=== PATIENT | male | born 1940 | race Caucasian/White ===

== ENCOUNTER 2021-10-04 19:53 | Emergency (ER) | payer MEDICARE, BC, SELFPAY ==
[2021-10-04 20:13] VITALS: BP 195/100; PULSE 77; RESP 16; TEMP 36.5; O2SAT 91
--- NOTE | 2021-10-04 20:23 | ED_ITS ---
HPI - Altered Mental Status General Chief Complaint: Unspecified Complaint, Adult Stated Complaint: Dementia, unusual behavior Time Seen by Provider: 10/04/21 19:57 Source: family History of Present Illness HPI narrative: patient presents today accompanied by his and son. Very hesitant to be examined today. Family reports that he has not been acting quite like himself over the past 3 days. He has had increased urinary incontinence and has been more confused wobbly than normal. He has a known history of moderate dementia and has been on Namenda and Aricept in the past. reports that they have stopped both of those medicines, the Aricept just being in the last few weeks as they were not noticing benefit from it. She is concerned that he could have a bladder infection as once this caused a worsening of his symptoms. He has had a bit of a busy day, family came to visit a look through some and visited for longer than usual period of time. When patient went to lie down and woke up from a nap, he was a bit disoriented and was yelling out but not showing any abuse of her combative type behaviors per family report. He wanted to go to the softball games this evening which is typical for him. The family did take him to the ball field and unfortunately the games ended quickly due to weather. Patient was irritable trying to get back in the car, they talked about going out for ice cream and he seemed more confused. They brought him to the ED today to evaluate this mental status change. No Fevers, there has been no vomiting no diarrhea. He has had no changes in his medicines in the last few days. no recent trauma or injury. No stroke-like symptoms, difficulty speaking, focal neurological changes. It took several staff members about 10 minutes to coax him into the furthest exam room. He keeps stating that he would like to go home and he does not need to be here. He seems restless but deescalate very quickly in my presence. It is quite clear that the dementia is a well-known problem, he has been on multiple medications, has see Neurology. His reports that they have additional home health starting for physical therapy, occupational therapy. They have not had any recent visit with their primary care provider. They have not tried any other interventions at home to help with symptoms. The son states that he will have the or confused spells in the overnight hours sometimes but it is not typical for him in the evenings. they deny any alcohol or intoxication. They state that is been eating and drinking normally. On specific questioning, I asked family about their ultimate goals for today. Am questioning whether they are telling me that they cannot manage him at home any need to admit him to the hospital for his own safety and to put him in a snf. I ask if they are wanting me to do a basic medical investigation to rule out any secondary causes for delirium today in the setting of underlying dementia. Son and both agreed that they can continue to meet His needs if I do find a benign workup today. I reviewed the medication list provided by his family most notable for vitamin supplements, antihypertensives. No narcotics or cognitive impairing substances. Recently discontinued dementia medications. Past medical history most notable for hypertension, obesity, osteoarthritis of multiple sites and moderate dementia. Social history supportive family with no alcohol abuse. No substance use. ROS is negative times 15 systems from the patient but the family noting increased confusion, more unsteadiness on feet and urinary incontinence which is new. They otherwise deny times 15 systems today. Related Data Home Medications Medication Instructions Recorded Confirmed citalopram 20 mg tablet mg 10/04/21 hydrochlorothiazide 12.5 mg tablet mg 10/04/21 levothyroxine 100 mcg tablet mcg 10/04/21 losartan 50 mg tablet mg 10/04/21 metoprolol succinate 100 mg mg PO 10/04/21 tablet,extended release 24 hr pravastatin 20 mg tablet mg 10/04/21 Allergies Allergy/AdvReac Type Severity Reaction Status Date / Time No Known Drug Allergies Allergy Verified 10/04/21 20:27 [facility] Medical History (Updated 10/04/21 @ 20:39 by Stacy Viveros MD) Hypertension Moderate dementia Social History Smoking Status: Unknown if ever smoked How often do you have a drink containing alcohol: never How often do you have six or more drinks on one occasion: Never AUDIT-C Alcohol total score: 0 Exam Const: Vital Signs, click to edit/add: Vital Signs - 24 hr 10/04/21 20:13 Temperature 97.7 F Pulse Rate [Left P ulse Oximeter] 77 Respiratory Rate 16 Blood Pressure [Ri ght Upper Arm] 195/100 H Pulse Oximetry 91 Oxygen Delivery Me thod Room Air Documenting provider has reviewed patient's vital signs: yes Common normals: no apparent distress General appearance: well kempt HENMT: Common normals: normocephalic Head and scalp: normocephalic Mouth: oral and palatal mucosa normal and moist mucous membranes abnormal Throat: posterior oropharynx normal Other: Moist membranes with normal dentition Eye: Common normals: PERRL, conjunctivae normal and no scleral icterus Conjunctiva: conjunctiva(e) normal Pupil: PERRL Neck & C-Spine: Other: nontender with no lymphadenopathy Resp: Common normals: normal respiratory effort, no use of accessory muscles and clear to auscultation bilaterally Auscultation: clear to auscultation bilaterally Cardio: Common normals: regular rate and regular rhythm Rate: regular rate Rhythm: regular rhythm Other: 2/6 systolic ejection murmur. No S4 GI: Other: obese but soft. No tenderness. No obvious mass Extremity: Other: trace edema to lower tibia, equal bilaterally Neuro: Other: Wobbly wide gait. redirectable by family. Calm and cooperative during the time of my exam. Very poor insight, thought process illogical at times. mildly irritable but not combative. In the very appropriate in their goals and helpful at counseling patient. Psych: Appearance: well kempt Attitude: guarded Memory/cognition: memory grossly impaired Insight: poor Judgement: limited Skin: Common normals: no rashes or lesions noted Narrative: No signs of bruising, trauma, injury. General skin exam: no rashes or lesions noted Course Vital Signs Vital signs: Initial Vital Signs Temperature 97.7 F 10/04/21 20:13 Temperature Source Temporal Artery Scan 10/04/21 20:13 Pulse Rate 77 10/04/21 20:13 Respiratory Rate 16 10/04/21 20:13 Blood Pressure 195/100 H 10/04/21 20:13 Blood Pressure Mean 131 10/04/21 20:13 Blood Pressure Position Sitting 10/04/21 20:13 Pulse Oximetry 91 10/04/21 20:13 Oxygen Delivery Method 10/04/21 20:13 Vital Signs Temperature 97.7 F 10/04/21 20:13 Pulse Rate 77 10/04/21 20:13 Respiratory Rate 16 10/04/21 20:13 Blood Pressure 195/100 H 10/04/21 20:13 Pulse Oximetry 91 10/04/21 20:13 Oxygen Delivery Method 10/04/21 20:13 Temperature 97.7 F 10/04/21 20:13 Pulse Rate 77 10/04/21 20:13 Respiratory Rate 16 10/04/21 20:13 Blood Pressure 195/100 H 10/04/21 20:13 Pulse Oximetry 91 10/04/21 20:13 Oxygen Delivery Method 10/04/21 20:13 MDM - Altered Mental Status MDM Narrative Medical decision making narrative: Goals reviewed with family. We will search for reversible cause of acute delirium in the setting of underlying dementia. I do suspect that he is exhibiting sundowning and that this behavior is going to continue. They claim that that they can meet his needs at the current time. he is going to need more extensive Memory Care at home or in a facility within the next few months. Differential Diagnosis Differential diagnosis: Likely alcoholic intoxication, altered mental status, delirium, dementia, hypoglycemia, hyponatremia and sepsis Medical Records Attestation: I reviewed the patient's medical records. Lab Data Attestation: I reviewed the patient's lab results. Lab results narrative: Lab findings have been discussed with family. I do not detect any signs of a bladder infection. At this time, the family does feel safe taking him home and they report that his condition has calmed down considerably while he has been in the emergency department. They do feel safe taking him home. We did briefly discuss assisted living, memory care. They are on appropriate waiting list for these types of services. Labs: Lab Results 10/04/21 10/04/21 10/04/21 Range/Units 20:40 20:49 20:49 WBC 11.24 H (4.50-11.00) K/uL RBC 4.80 (4.30-5.90) m/uL Hgb 15.1 (13.5-17.5) gm/dL Hct 45.0 (37.0-53.0) % MCV 94 (80-100) fL MCH 32 (26-34) pg MCHC 34 (32-36) gm/dL RDW Coeff of Zena 12.3 (11.5-15.5) % Plt Count 250 (140-440) K/uL Neut % (Auto) 69.0 (42.0-72.0) % Lymph % (Auto) 17.4 L (20-44) % Esmeralda % (Auto) 7.5 (0.0-11.0) % Eos % (Auto) 5.2 (0.0-7.0) % Baso % (Auto) 0.6 (0.0-3.0) % Neut # (Auto) 7.80 H (1.7-7.0) K/uL Lymph # (Auto) 2.00 (0.90-2.90) K/uL Esmeralda # (Auto) 0.80 (0.00-0.90) K/UL Eos # (Auto) 0.60 H (0.00-0.50) K/uL Baso # (Auto) 0.10 (0.00-0.30) K/uL Abs Immat Gran (auto) 0.03 (0.00-0.30) K/uL Sodium 141 (135-149) mmol/L Potassium 3.5 L (3.6-5.1) mmol/L Chloride 106 (96-114) mmol/L Carbon Dioxide 22 (20-32) mmol/L BUN 23 (7-30) mg/dL Creatinine 1.0 (0.5-1.5) mg/dL Estimated GFR 77 ml/min Glucose 146 H (60-115) mg/dL Calcium 9.4 (8.4-10.6) mg/dL Urine Color Yellow (Yellow) Urine Appearance Clear (Clear) Urine pH 5.5 (5.0-8.5) Ur Specific [place] 1.020 (1.000-1.030) Urine Protein 1+ A (Negative) Urine Glucose (UA) Trace A (Negative) Urine Ketones Trace A (Negative) Urine Blood Negative (Negative) Urine Nitrite Negative (Negative) Urine Bilirubin Negative (Negative) Urine Urobilinogen 0.2 (0.2-1.0) Ur Leukocyte Esterase Negative (Negative) Urine RBC 0-2 (0-2) Urine WBC 0-2 (0-5) Ur Squamous Epith Cells Few (None-Few) Urine Bacteria None (None) Urine Mucus Few A (None) Ethyl Alcohol (0.01-0.03) % 10/04/21 Range/Units 20:49 WBC (4.50-11.00) K/uL RBC (4.30-5.90) m/uL Hgb (13.5-17.5) gm/dL Hct (37.0-53.0) % MCV (80-100) fL MCH (26-34) pg MCHC (32-36) gm/dL RDW Coeff of Zena (11.5-15.5) % Plt Count (140-440) K/uL Neut % (Auto) (42.0-72.0) % Lymph % (Auto) (20-44) % Esmeralda % (Auto) (0.0-11.0) % Eos % (Auto) (0.0-7.0) % Baso % (Auto) (0.0-3.0) % Neut # (Auto) (1.7-7.0) K/uL Lymph # (Auto) (0.90-2.90) K/uL Esmeralda # (Auto) (0.00-0.90) K/UL Eos # (Auto) (0.00-0.50) K/uL Baso # (Auto) (0.00-0.30) K/uL Abs Immat Gran (auto) (0.00-0.30) K/uL Sodium (135-149) mmol/L Potassium (3.6-5.1) mmol/L Chloride (96-114) mmol/L Carbon Dioxide (20-32) mmol/L BUN (7-30) mg/dL Creatinine (0.5-1.5) mg/dL Estimated GFR ml/min Glucose (60-115) mg/dL Calcium (8.4-10.6) mg/dL Urine Color (Yellow) Urine Appearance (Clear) Urine pH (5.0-8.5) Ur Specific [place] (1.000-1.030) Urine Protein (Negative) Urine Glucose (UA) (Negative) Urine Ketones (Negative) Urine Blood (Negative) Urine Nitrite (Negative) Urine Bilirubin (Negative) Urine Urobilinogen (0.2-1.0) Ur Leukocyte Esterase (Negative) Urine RBC (0-2) Urine WBC (0-5) Ur Squamous Epith Cells (None-Few) Urine Bacteria (None) Urine Mucus (None) Ethyl Alcohol < 0.01 L (0.01-0.03) % Discharge Plan Discharge Clinical Impression: Moderate dementia Patient Disposition: Home w/ Parent or Adult Condition: Stable Instructions: Dementia (ED) Additional Instructions: The blood work is reassuring. There are no signs of a bladder infection, kidney disease, electrolyte abnormality or anemia today. This is all good news. My suspicion is that unfortunately his dementia is progressing and this is not always in a linear fashion. Sometimes it takes major stair steps in progression and can wax and wane overall. I think that today's behavior changes were brought on by the family visit. your doing an excellent job at looking at all of your options For looking at living arrangements and safety. I do not recommend any further changes to her medications at this time. I would like for you to follow-up with your primary care team within 1 week to discuss the mental status changes and potential need for additional home services. We will culture the urine to be sure there is no infection and will call only if this is suspicious for infection. I am sorry that we were not able to find and easily fixable source for these changes today. Activity Level: Activity as Tolerated and Use Walker Discharge Diet: Regular Prescriptions: No Action losartan 50 mg tablet metoprolol succinate 100 mg tablet extended release 24 hr PO levothyroxine 100 mcg tablet citalopram 20 mg tablet pravastatin 20 mg tablet hydrochlorothiazide 12.5 mg tablet Follow Up/Referrals: Gregg Carty MD [Primary Care Provider] - Stand Alone Forms: [employer] Info Instructions
--- NOTE | 2021-10-04 20:42 | ED.NURSE ---
Pt ambulatory to the restroom with assistance. Pt provided UA.
[2021-10-04 20:45] LABS: Appearance Urine Clear (Clear); Bilirubin Urine Negative (Negative); Blood Urine Negative (Negative); Color Urine Yellow (Yellow); Glucose Urine Trace (Negative); Ketones Urine Trace (Negative); Leukocyte Esterase Urine Negative (Negative); Nitrite Urine Negative (Negative); Protein Urine 1+ (Negative); Urobilinogen Urine 0.2 (0.2-1.0); pH Urine 5.5 (5.0-8.5)
[2021-10-04 20:53] LABS: RBC Urine 0-2 (0-2); Squamous Epithelial Cell Urine Few (None-Few); WBC Urine 0-2 (0-5)
[2021-10-04 20:54] LABS: Mucus Urine Few
[2021-10-04 20:55] LABS: Basophils Percent Auto 0.6 % (0.0-3.0); Eosinophils Percent Auto 5.2 % (0.0-7.0); Hemoglobin* 15.1 gm/dL (13.5-17.5); Immature Granulocytes Abs Auto 0.03 K/uL (0.00-0.30); Lymphocytes Percent Auto 17.4 % (20-44); Mean Corpuscular HGB Conc 34 gm/dL (32-36); Mean Corpuscular Hemoglobin 32 pg (26-34); Mean Corpuscular Volume 94 fL (80-100); Monocytes Percent Auto 7.5 % (0.0-11.0); Platelet Count* 250 K/uL (140-440); RDW Coefficient of Variation % 12.3 % (11.5-15.5); White Blood Count* 11.24 K/uL (4.50-11.00)
[2021-10-04 20:58] LABS: Slide Review Reflex No
--- NOTE | 2021-10-04 21:00 | ED.NURSE ---
Pt does not tolerate BP readings with automatic cuff because they are too painful for him. Manual BPs attempted, pt unable to tolerate completion of reading. Pt pulling away and demanding BP cuff be taken off during reading. MD aware of BP reading issues, okay with discontinuing further BP reading attempts.
[2021-10-04 21:09] LABS: Chloride* 106 mmol/L (96-114); Potassium* 3.5 mmol/L (3.6-5.1); Sodium* 141 mmol/L (135-149)
[2021-10-04 21:12] LABS: Blood Urea Nitrogen* 23 mg/dL (7-30); Carbon Dioxide* 22 mmol/L (20-32); Estimated Glomerular Filt Rate 77 ml/min; Glucose* 146 mg/dL (60-115)
[2021-10-04 21:13] LABS: Calcium* 9.4 mg/dL (8.4-10.6); Ethanol* < 0.01 % (0.01-0.03)
== END 2021-10-04 21:42 | disposition home or self-care (01) ==
PROVIDERS: Emergency Provider Family Medicine; PCP Family Medicine
DX: F03.90 Unspecified dementia, unspecified severity, without behavioral disturbance, psychotic disturbance, mood disturbance, and anxiety (principal)
CPT/HCPCS: 36415; 80048; 81001; 82077; 85025; 87086; 99283

== ENCOUNTER 2021-10-11 19:38 | Outpatient (CLI) | payer MEDICARE, BC, SELFPAY ==
--- OUTSIDE RECORDS SUMMARY | 2021-11-06 11:47 | XMS_ITS | Clinical Summary ---
:1940 Author Organization [facility] Address [address] [place] [address] Care Team Providers Name Role Phone No Ref-Primary, Physician Primary Care Provider [phone] Immunizations Name Administration Dates Next Due [...] Phone Addre ss Type Group BCBS BCBS [place] [id number] 2017-Present [address] [address] [place] [address] Care Teams Heading Machine Operator Relationship Specialty Start Date End Date No Ref-Primary, Physician PCP - General 03/16/20
--- OUTSIDE RECORDS SUMMARY | 2021-11-06 11:47 | XMS_ITS | Clinical Summary ---
:1940 Author Organization [employer] [place] [address] Care Team Providers Name Role Phone Seamus Holley DO Unavailable Rudy Ohara MD Unavailable [phone] Allergies Active Allergy Reactions Severity Noted Date [...] Essential hypertension CPAPIndications: CPAP machine 1 Each 11 09/14/19 Active Obstructive sleep for home use [...] 06/26/19 Discontinued 100 mg capIndications: capsule by 022 (*Med Mixed hyperlipidemia mouth 2 times complete/Regime [...] Adenocarcinoma of prostate 10/15/2011 Overview: Prostatic adenocarcinoma, Crane's grad e 3 + 4 = 08/26: Pathology Report from Bx 09/17/2011 [place] 09/25/2009 AHI 24, positional 111 in supine 10/17/19 10 Overview: Doing well with CPAP Advised to bring it to [facility] for surgery Adjustment disorder with depressed mood [...] COORDINATION 10/12/2021 Home Care Visit Maureen Shin SCHOOL COOK - MISSED VISIT 10/11/2021 Home Care Visit Florencia Pinto, OT - HOME VISIT GEE 10/11/2021 Home Care Visit Tennille Robledo, PT PT - HOME VISIT 10/11/2021 Telephone Miesha Gilbert, Home Ca re (Medication PT Clarification) 10/10/2021 Home Care Visit Florencia Pinto, OT - HOME VISIT GEE 10/10/2021 Home Care Visit Harriett Rodriguez MSW - TELEHEALTH WALLPAPER INSPECTOR AND SHIPPER ASSESSMENT 10/09/2021 Home Care Visit Tennille Robledo, PT PT - HOME VISIT 10/09/2021 Home Care Visit Maureen Shin SCHOOL COOK - HOME VISIT 10/09/2021 Travel 10/08/2021 Telemedicine Gregg Carty Teleh ealth (Follow up) 10/08/2021 Home Care Visit Elisha Ferguson, OT OT - INITIAL ASSESSMENT 10/05/2021 Home Care Visit Xochilt Alvares, CARE COORDINATION PT 10/04/2021 Orders Only Scanner <No scans attac hed> 10/03/2021 Home Care Visit Miesha Gilbert, PT - OASIS START OF CARE PT 10/01/2021 Telephone Gregg Carty MD 09/27/2021 Telephone Gregg Carty Form 09/26/2021 Telephone Gregg Carty, [facility] (Handicap parking pass) 09/20/2021 Orders Only Gregg Carty, Lab ( Outside Order) 09/13/2021 Office Visit Salazar Jeffery MD Sleep Follow -up (CPAP) 09/13/2021 Travel from Last 3 Months Immunizations Name Administration [...] 0911/08/2019 65+ Years) Preserv Free COVID-19 vaccine ([employer] 08/01/2021 30mcg/0.3mL) 12YO+ BRODIE-SUCROSE PF, MDV COVID-19 vaccine ([employer] 12/14/2020, 04/09/2020, 30mcg/0.3mL) PF, MDV Influenza A (H1N1), Inactivated 2009 Influenza A (H1N1), Inactivated (Age 0102/28/2009 >=3 Years) Influenza, IIV3 (Age 6-35 mos) 12/03/2010, 01/24/2009 Influenza, IIV3 (Age >=3 years) 11/04/2011, 12/03/2010, 2010, 12/03/2006, 12/18/2005, 12/25/2004, 12/14/2002 Influenza, Inactivated AIIV4 [...] 177.8 cm (5' 10) 03/13/2021 9:37 AM JACKER FEEDER Body Mass Index 33.55 03/13/2021 9:37 AM JACKER FEEDER Plan of Treatment Not on file Goals [...] procedure are i n the results section. from Last 3 Months [...] that is no t available. Scanner OTHER from Last 3 Months Insurance Payer Benefit Plan / Subscriber ID Effective Dates Phone Addre ss Type Group MEDICARE PART MEDICARE PART [id number] [place] A - [place] USE A HB ONLY ent [address] [place] [address] MEDICARE PART MEDICARE PART [id number] 2007-[place] B - HB USE B HB ONLY t [address] [place] [address] MEDICARE PPS HC MEDICARE [id number] 2007-[place] [address] [place] [address] [address] [place] [place] [id number] 2017-Presen [address] [address] [place] [facility] [place] [id number] [place]OSS [place] [id number] 2017-[place] [address] [address] [place], [place] ONLY [phone] Advance Directives Documents on File Type Date Recorded Patient Freight Sorter Explanati on Healthcare Directive 08/11/2018 10:47 AM HEALTH C ARE DIRECTIVE, [facility], 03/10/18 Latest Code Status on File Code Status Date Activated Date Inactivated Comments Full Code 06/21/2017 12:01 PM 06/22/2017 2:44 PM Code Status Discussion: Discussed Full Code 11/04/2011 8:01 PM 11/06/2011 10:11 PM Care Teams [place] Relationship Specialty Start Date End Date Seamus Holley DO Neurology Neurology 12/23/11 Rudy Ohara MD Surgery - Urology 02/19/[address] [place] [address]
--- OUTSIDE RECORDS SUMMARY | 2021-11-06 11:47 | XMS_ITS | Encounter Summary ---
:1940 Author Organization [facility] Address [address] [place] [address] Care Team Providers Name Role Phone No Ref-Primary, Physician Primary Care Provider [phone] Encounter Details Date Type Department Care Team Description 03/19/2020 [facility] [address] [address] Social History Tobacco Use Types Packs/Day Years Used Date Never Assessed Sex Assigned at Date Recorded Not on file documented as of this encounter Plan of Treatment Not on filedocumented as of this encounter Visit Diagnoses Not on filedocumented in this encounter Care Teams Shipping Associate Relationship Specialty Start Date End Date No Ref-Primary, Physician PCP - General 03/16/20 documented as of this encounter
--- OUTSIDE RECORDS SUMMARY | 2021-11-06 11:47 | XMS_ITS | Encounter Summary ---
:1940 Author Organization [facility] Address [address] [place] [address] Care Team Providers Name Role Phone No Ref-Primary, Physician Primary Care Provider [phone] Encounter Details Date Type Department Care Team Description 04/09/2020 Immunization [facility] Ryan Marie, Vaccination [address] [address] [place] [address] [phone] Social History Tobacco Use Types Packs/Day Years Used Date Never Assessed Sex Assigned at Date Recorded Not on file documented as of this encounter Plan of Treatment Not on filedocumented as of this encounter Visit Diagnoses Not on filedocumented in this encounter Care Teams Pearl Technician Relationship Specialty Start Date End Date No Ref-Primary, Physician PCP - General 03/16/20 documented as of this encounter
--- OUTSIDE RECORDS SUMMARY | 2021-11-06 11:47 | XMS_ITS ---
[...] [facility] QL, BINU+probe, passage) [facility] [place]: [address] Past Encounters 10/20/2020 Exposure to SARS-CoV-2 Cindi Patrick PA-C: [address] [facility], [address] [address], Ph. [phone] Social History None recorded. Vaccine List None recorded. Plan of Care Reminders Provider Appointments None recorded. ? ? Lab None recorded. ? ? Referral None recorded. ? ? Procedures None recorded. ? ? Surgeries None recorded. ? ? Imaging None recorded. ? ? Vitals Blood Pressure 165/81 mm[Hg]
== END 2021-10-11 19:39 | disposition home or self-care (01) ==
LOC: AMB 11-06 11:45
PROVIDERS: PCP Family Medicine; Visit Provider Family Medicine
DX: R53.1 Weakness (principal); G30.9 Alzheimer's disease, unspecified
CPT/HCPCS: A0425; A0427

== ENCOUNTER 2021-10-11 20:17 | Inpatient (IN) | payer MEDICARE, BC, SELFPAY ==
[2021-10-11 20:20] VITALS: BP 225/105; PULSE 78; RESP 18; O2SAT 91; BMI 39.1
--- NOTE | 2021-10-11 20:44 | ED_ITS ---
HPI - General Adult General Time Seen by Provider: 20:44 Date Seen: 10/11/21 Chief complaint: Altered Mental Status Stated complaint: Dementia Time Seen by Provider: 10/11/21 20:41 Source: family and RN notes reviewed Limitations: no limitations History of Present Illness HPI narrative: Patient is brought in by family from home where he has been residing in under their cares. The brought him in because he is having increased difficulty ambulating about the house. Physical therapy did come and is cm today it is just taking some shuffling steps. They have a split-level house and she is worried he is going to fall, worried that he cannot navigate the stairs and longer. He sat down at the bedside tonight and basically just flung himself backwards. She could not get him up. She does not feel that she will be able to manage him if this is his baseline now. She has not noted any fevers or chills. No cough or cold symptoms. His appetite has been good but he has been having progressive difficulty feeding himself. It sounds as if some of the people that are coming in the house to help have suggested that it might be time for more assistance with him. He had been on Aricept and Namenda but they have been stopped as they were not noted no benefit per his . The Namenda has been out of his system for couple months per her report, Aricept maybe a month. They did have evaluation in the ER about 1 week ago. Patient really cannot answer any questions with any reassurance to his answers. He is laughing a lot, speech is succinct but basically babbles and is not making comprehensible statements. Of note, when patient 1st came in his son reported the was screaming about the blood pressure being done by the machine. He was quite upset and did make staff feel uncomfortable, seemed aggressive to them. I did hear him yelling but situation already been addressed. Related Data Home Medications Medication Instructions Recorded Confirmed citalopram 20 mg tablet mg 10/04/21 hydrochlorothiazide 12.5 mg tablet mg 10/04/21 levothyroxine 100 mcg tablet mcg 10/04/21 losartan 50 mg tablet mg 10/04/21 metoprolol succinate 100 mg mg PO 10/04/21 tablet,extended release 24 hr pravastatin 20 mg tablet mg 10/04/21 Allergies Allergy/AdvReac Type Severity Reaction Status Date / Time No Known Drug Allergies Allergy Verified 10/04/21 20:27 Review of Systems Narrative: See HPI, review of systems is from his . [facility] Medical History (Updated 10/11/21 @ 23:38 by Heidi Herbert MD) Hypertension Moderate dementia Social History Smoking Status: Unknown if ever smoked How often do you have a drink containing alcohol: never How often do you have six or more drinks on one occasion: Never AUDIT-C Alcohol total score: 0 Non-prescribed substance use: denies use Exam Const: Vital Signs, click to edit/add: Vital Signs - 24 hr 10/11/21 20:20 Pulse Rate [Left P ulse Oximeter] 78 Respiratory Rate 18 Blood Pressure [Ri ght Upper Arm] 225/105 H Pulse Oximetry 91 Oxygen Delivery Me thod Room Air Documenting provider has reviewed patient's vital signs: yes Common normals: no apparent distress, healthy appearing, alert and well nourished General appearance: cooperative and comfortable Nutritional appearance: overweight Other: Is laughing, speech is succinct but nonsensical. HENMT: Common normals: normocephalic, head/scalp atraumatic, hearing grossly normal bilaterally, external ears normal, external nose normal, nasal mucous membranes and turbinates normal, moist oral mucous membranes and oropharynx normal Head and scalp: normocephalic and atraumatic Nose: external nose normal and nasal mucous membranes and turbinates normal External ear: external ears normal Eye: Common normals: PERRL, EOMs intact bilaterally, conjunctivae normal and no scleral icterus Conjunctiva: conjunctiva(e) normal Pupil: PERRL Neck & C-Spine: Common normals: full ROM, no lymphadenopathy, supple and thyroid normal Thyroid: thyroid normal Resp: Common normals: normal respiratory effort, no retractions, no use of accessory muscles and clear to auscultation bilaterally Auscultation: clear to auscultation bilaterally Cardio: Common normals: regular rate, regular rhythm, S1 normal heart sound, S2 normal heart sound, no gallops, no clicks and no murmurs (Was talking all the way through heart exam, note prior murmur not heard ) Rate: regular rate Rhythm: regular rhythm Heart sounds: S1 normal and S2 normal GI: Common normals: Normal to inspection, nondistended, normoactive bowel sounds present, soft to palpation, non-tender, no hepatosplenomegaly and no masses Palpation: soft and no hepatosplenomegaly Extremity: Other: Has tube socks on, minimal sock line. No significant pretibial edema. No rashes or lesions noted. Neuro: Sensorium/orientation: alert Course Course Hospital Course: Have discussed with his her goals of care. She just wants to make sure that nothing has changed in his labs from . At this point, with his current status, she does not feel that she can manage him at home. She states she would not be able to change him, he is not of much help in assisting her with his cares at this point. We will check some basic labs, try to obtain a urinalysis. She understands we need to do a COVID test. I think it is likely that his dementia is just progressing and he is having increased motor difficulties. It sounds as if it is more of a global process than anything isolated. I do not think he needs neuroimaging as well him seen is not focal here tonight either. Consultations Consultation #1: Have spoken with the telehealth hospitalist service, they will accept and admit. I have reviewed with his that the potassium is mildly low but nothing seen to give him some weakness or change his ability to ambulate to this extent. I feel that this is likely his progression in his dementia that starting to happen. He will be put in the hospital as he is not safe to return home to independent living with his . They will need to look for placement for him. Time: 23:47 Vital Signs Vital signs: Initial Vital Signs Pulse Rate 78 10/11/21 20:20 Pulse Rhythm 10/11/21 20:20 Pulse Strength 3+ Normal 10/11/21 20:20 Respiratory Rate 18 10/11/21 20:20 Blood Pressure 225/105 H 10/11/21 20:20 Blood Pressure Mean 145 10/11/21 20:20 Blood Pressure Position Sitting 10/11/21 20:20 Pulse Oximetry 91 10/11/21 20:20 Oxygen Delivery Method 10/11/21 20:20 Vital Signs Pulse Rate 78 10/11/21 20:20 Respiratory Rate 18 10/11/21 20:20 Blood Pressure 225/105 H 10/11/21 20:20 Pulse Oximetry 91 10/11/21 20:20 Oxygen Delivery Method 10/11/21 20:20 Pulse Rate 78 10/11/21 20:20 Respiratory Rate 18 10/11/21 20:20 Blood Pressure 225/105 H 10/11/21 20:20 Pulse Oximetry 91 10/11/21 20:20 Oxygen Delivery Method 10/11/21 20:20 Medical Decision Making Lab Data Lab results reviewed: Yes I reviewed the patient's lab results Labs: Lab Results 10/11/21 10/11/21 10/11/21 Range/Units 21:30 21:30 22:25 WBC 9.30 (4.50-11.00) K/uL RBC 4.89 (4.30-5.90) m/uL Hgb 15.4 (13.5-17.5) gm/dL Hct 46.3 (37.0-53.0) % MCV 95 (80-100) fL MCH 32 (26-34) pg MCHC 33 (32-36) gm/dL RDW Coeff of Zena 12.3 (11.5-15.5) % Plt Count 262 (140-440) K/uL Neut % (Auto) 59.9 (42.0-72.0) % Lymph % (Auto) 22.0 (20-44) % [place] % (Auto) 10.5 (0.0-11.0) % Eos % (Auto) 6.3 (0.0-7.0) % Baso % (Auto) 0.5 (0.0-3.0) % Neut # (Auto) 5.56 (1.7-7.0) K/uL Lymph # (Auto) 2.05 (0.90-2.90) K/uL [place]ward # (Auto) 1.00 H (0.00-0.90) K/UL Eos # (Auto) 0.59 H (0.00-0.50) K/uL Baso # (Auto) 0.05 (0.00-0.30) K/uL Abs Immat Gran (auto) 0.07 (0.00-0.30) K/uL Sodium 141 (135-149) mmol/L Potassium 3.2 L (3.6-5.1) mmol/L Chloride 103 (96-114) mmol/L Carbon Dioxide 29 (20-32) mmol/L BUN 27 (7-30) mg/dL Creatinine 1.1 (0.5-1.5) mg/dL Estimated Creat Clear 58.00 Estimated GFR 68 ml/min Glucose 123 H (60-115) mg/dL Calcium 9.5 (8.4-10.6) mg/dL Total Bilirubin 0.4 (0.1-1.5) mg/dL AST 33 (12-35) U/L ALT 26 (4-50) U/L Alkaline Phosphatase 103 (40-150) U/L Troponin I < 0.01 L (0.01-0.04) ng/mL Total Protein 8.2 (6.0-8.3) g/dL Albumin 4.5 (3.3-5.0) g/dL Urine Color Yellow (Yellow) Urine Appearance Clear (Clear) Urine pH 7.0 (5.0-8.5) Ur Specific [place] 1.020 (1.000-1.030) Urine Protein Negative (Negative) Urine Glucose (UA) Negative (Negative) Urine Ketones Negative (Negative) Urine Blood Trace-intact A (Negative) Urine Nitrite Negative (Negative) Urine Bilirubin Negative (Negative) Urine Urobilinogen 0.2 (0.2-1.0) Ur Leukocyte Esterase Negative (Negative) Urine RBC 2-5 A (0-2) Urine WBC 0-2 (0-5) Ur Squamous Epith Cells Moderate A (None-Few) Amorphous Sediment Few A (None) Urine Bacteria Moderate A (None) Urine Mucus Few A (None) SARS-CoV-2 (PCR) (Negative) 10/11/21 Range/Units 22:25 WBC (4.50-11.00) K/uL RBC (4.30-5.90) m/uL Hgb (13.5-17.5) gm/dL Hct (37.0-53.0) % MCV (80-100) fL MCH (26-34) pg MCHC (32-36) gm/dL RDW Coeff of Zena (11.5-15.5) % Plt Count (140-440) K/uL Neut % (Auto) (42.0-72.0) % Lymph % (Auto) (20-44) % [place] % (Auto) (0.0-11.0) % Eos % (Auto) (0.0-7.0) % Baso % (Auto) (0.0-3.0) % Neut # (Auto) (1.7-7.0) K/uL Lymph # (Auto) (0.90-2.90) K/uL [place] # (Auto) (0.00-0.90) K/UL Eos # (Auto) (0.00-0.50) K/uL Baso # (Auto) (0.00-0.30) K/uL Abs Immat Gran (auto) (0.00-0.30) K/uL Sodium (135-149) mmol/L Potassium (3.6-5.1) mmol/L Chloride (96-114) mmol/L Carbon Dioxide (20-32) mmol/L BUN (7-30) mg/dL Creatinine (0.5-1.5) mg/dL Estimated Creat Clear Estimated GFR ml/min Glucose (60-115) mg/dL Calcium (8.4-10.6) mg/dL Total Bilirubin (0.1-1.5) mg/dL AST (12-35) U/L ALT (4-50) U/L Alkaline Phosphatase (40-150) U/L Troponin I (0.01-0.04) ng/mL Total Protein (6.0-8.3) g/dL Albumin (3.3-5.0) g/dL Urine Color (Yellow) Urine Appearance (Clear) Urine pH (5.0-8.5) Ur Specific [place] (1.000-1.030) Urine Protein (Negative) Urine Glucose (UA) (Negative) Urine Ketones (Negative) Urine Blood (Negative) Urine Nitrite (Negative) Urine Bilirubin (Negative) Urine Urobilinogen (0.2-1.0) Ur Leukocyte Esterase (Negative) Urine RBC (0-2) Urine WBC (0-5) Ur Squamous Epith Cells (None-Few) Amorphous Sediment (None) Urine Bacteria (None) Urine Mucus (None) SARS-CoV-2 (PCR) Negative SARS-CoV-2 (Negative) Critical Care Time Critical Care Time Critical Care Time: No Discharge Plan Discharge Clinical Impression: Dementia, Difficulty in walking, Hypokalemia Patient Disposition: Admitted As Inpatient Condition: Stable
[2021-10-11 21:55] LABS: Albumin* 4.5 g/dL (3.3-5.0); Chloride* 103 mmol/L (96-114)
[2021-10-11 21:56] LABS: Potassium* 3.2 mmol/L (3.6-5.1); Sodium* 141 mmol/L (135-149)
[2021-10-11 21:58] LABS: Bilirubin Total* 0.4 mg/dL (0.1-1.5); Carbon Dioxide* 29 mmol/L (20-32); Creatinine* 1.1 mg/dL (0.5-1.5); Estimated Glomerular Filt Rate 68 ml/min
[2021-10-11 21:59] LABS: Alanine Aminotransferase* 26 U/L (4-50); Alkaline Phosphatase* 103 U/L (40-150); Aspartate Amino Transferase* 33 U/L (12-35); Blood Urea Nitrogen* 27 mg/dL (7-30); Calcium* 9.5 mg/dL (8.4-10.6); Total Protein* 8.2 g/dL (6.0-8.3)
[2021-10-11 22:15] LABS: Glucose* 123 mg/dL (60-115)
[2021-10-11 22:37] LABS: Appearance Urine Clear (Clear); Bilirubin Urine Negative (Negative); Blood Urine Trace-intact (Negative); Color Urine Yellow (Yellow); Glucose Urine Negative (Negative); Ketones Urine Negative (Negative); Leukocyte Esterase Urine Negative (Negative); Nitrite Urine Negative (Negative); Protein Urine Negative (Negative); Urobilinogen Urine 0.2 (0.2-1.0)
[2021-10-11 22:37] LABS: Troponin I* < 0.01 ng/mL (0.01-0.04)
[2021-10-11 22:54] LABS: Amorphous Sediment Urine Few; Bacteria Urine Moderate; Mucus Urine Few; Squamous Epithelial Cell Urine Moderate (None-Few); WBC Urine 0-2 (0-5)
[2021-10-11 23:06] LABS: Basophils Absolute Auto 0.05 K/uL (0.00-0.30); Basophils Percent Auto 0.5 % (0.0-3.0); Eosinophils Absolute Auto 0.59 K/uL (0.00-0.50); Eosinophils Percent Auto 6.3 % (0.0-7.0); Hematocrit 46.3 % (37.0-53.0); Hemoglobin* 15.4 gm/dL (13.5-17.5); Immature Granulocytes Abs Auto 0.07 K/uL (0.00-0.30); Lymphocytes Absolute Auto 2.05 K/uL (0.90-2.90); Mean Corpuscular HGB Conc 33 gm/dL (32-36); Mean Corpuscular Hemoglobin 32 pg (26-34); Mean Corpuscular Volume 95 fL (80-100); Monocytes Percent Auto 10.5 % (0.0-11.0); Neutrophils Absolute Auto 5.56 K/uL (1.7-7.0); Neutrophils Percent Auto 59.9 % (42.0-72.0); Platelet Count* 262 K/uL (140-440); RDW Coefficient of Variation % 12.3 % (11.5-15.5); Red Blood Count 4.89 m/uL (4.30-5.90)
[2021-10-11 23:14] LABS: Slide Review Reflex No
[2021-10-11 23:33] LABS: SARS PCR* Negative SARS-CoV-2 (Negative)
[2021-10-12] VITALS (7 sets, daily range): BP systolic 115–205; BP diastolic 96–107; PULSE 62–73; RESP 16–18; TEMP 36.2–37.2; O2SAT 90–94; BMI 33.1
--- NOTE | 2021-10-12 00:01 | ED.NURSE ---
pt give apple sauce and jello
--- NOTE | 2021-10-12 00:47 | W.PC.EDHO ---
Primary Language: Preferred Language: Orientation Status: [] Alert & Oriented x[] Slight Confusion [] Known Dx Dementia Transfers By: x[] Assist of 1 [] Assist of 2 [] Lift Description of Symptoms ED Triage Present Problem BIBA for increased weakness and difficulty moving Description around more like baby steps. Started about a week ago. hx of dementia. Here with Son. Here a week ago. Had PT this morning. ED Triage Date of Onset of 10/11/21 Symptoms [place]assar Coma Scale Vassar coma scale total score 14 Oxygen Administration Pulse Oximetry 91 Oxygen Delivery Method Room Air
--- NOTE | 2021-10-12 01:00 | ED.NURSE ---
Pt with pleasant demeanor was difficult to direct from standing at BS to sit on bedside commode. Pt was smiling and interactive but would not bend knees. Fur Comber found pt difficult to direct even using clear direct commands and with assistance of Pt lean coach. Pt was difficult to assist then from standing to w/c. When Pt finally on toilet for bowel movement, and after he had peed on the floor and cleaned up, jingle writer did leave Pt sitting on toilet with with standing at side. Fur Comber asked to use red call light when Pt finished with bowel movement. tried to assist Pt with brief, and Pt fell to floor next to toilet. Pt fell onto bottom and reported bumping his head on wall. Pt was alert and smiling, no loc, two assist up to w/c. Dr. Menendez notified and to room for exam. Fur Comber observed no redness to bottom nor head and no change in mentation.
--- NOTE | 2021-10-12 02:35 | P.IMCN_ITS ---
Date of Consult Consult date: 10/12/21 Primary Care Provider: Gregg Carty MD Consult Narrative Narrative: Ronnie [facility] Hospitalist eHospitalist was contacted with request of consultation on Salty Loya. Mr Loya is a 81 year old gentleman with hx of advanced dementia who was brought to the hospital for worsening weakness and inability of his to take care of him at home. no fever, chills, chest pain, shortness of breath, abd pain, nasuea, vomiting, diarrhea or dysuria. the hx was provided by his at the bedside. Home Medications: see EMR Pertinent Medical History: See EMR Pertinent Social History: See EMR Exam (performed via interactive video with assistance of bedside nurse; Cherie): General: alert, cooperative, no acute distress HEENT: oral mucosa pink and moist without erythema Lungs: clear to auscultation bilaterally without crackle or wheeze CV: regular rate and rhythm without loud murmur rub or gallop Abd: denies tenderness and does not exhibit signs of pain with palpation done by bedside nurse Ext: no pitting edema noted Skin: no rashes, bruises or lesions. Neuro: alert, pleasantly demented. facial muscles grossly intact, moves all extremities without any significant focal deficit appreciated by nurse Labs and imaging were reviewed Assessment and Plan: Advanced dementia mild dehydration Mild hypokalemia will give gentle IVF will give K will continue home medications PT/OT will likely need placement Thank you for including Ronnie Tavarez in the patients care. This service is available for further assistance as requested by your care team by calling [phone]. [facility] Medical History (Updated 10/11/21 @ 23:38 by Heidi Herbert MD) Hypertension Moderate dementia Social History Highest level of school completed/degree received: Master's degree Smoking Status: Never smoker How often do you have a drink containing alcohol: never How often do you have six or more drinks on one occasion: Never AUDIT-C Alcohol total score: 0 Non-prescribed substance use: denies use Caffeine: Yes (occasional) service: No Meds Home Medications and Allergies Home Medications Medication Instructions Recorded Confirmed Type citalopram 20 mg tablet mg 10/04/21 History hydrochlorothiazide 12.5 mg tablet mg 10/04/21 History levothyroxine 100 mcg tablet mcg 10/04/21 History losartan 50 mg tablet mg 10/04/21 History metoprolol succinate 100 mg mg PO 10/04/21 History tablet,extended release 24 hr pravastatin 20 mg tablet mg 10/04/21 History Allergies Allergy/AdvReac Type Severity Reaction Status Date / Time No Known Drug Allergies Allergy Verified 10/04/21 20:27 Exam Const: Vital Signs, click to edit/add: Vital Signs - 24 hr 10/11/21 20:20 10/12/21 01:44 10/12/21 01:44 Temperature 98.9 F Pulse Rate [Left P ulse Oximeter] 78 Pulse Rate [Right Pulse Oximeter] 64 Respiratory Rate 18 18 18 Blood Pressure [Ri ght Arm] 115/99 H Blood Pressure [Ri ght Upper Arm] 225/105 H Pulse Oximetry 91 94 94 Oxygen Delivery Me thod Room Air Room Air Room Air Labs Labs: Short CBC 10/11/21 Range/Units 21:30 WBC 9.30 (4.50-11.00) K/uL Hgb 15.4 (13.5-17.5) gm/dL Hct 46.3 (37.0-53.0) % Plt Count 262 (140-440) K/uL BMP 10/11/21 21:30 Sodium 141 Potassium 3.2 L Chloride 103 Carbon Dioxide 29 BUN 27 Creatinine 1.1 Glucose 123 H Calcium 9.5 Cardiac Enzymes 10/11/21 Range/Units 21:30 Troponin I < 0.01 L (0.01-0.04) ng/mL Liver Function 10/11/21 Range/Units 21:30 Total Bilirubin 0.4 (0.1-1.5) mg/dL AST 33 (12-35) U/L ALT 26 (4-50) U/L Alkaline Phosphatase 103 (40-150) U/L Albumin 4.5 (3.3-5.0) g/dL Urine 10/11/21 Range/Units 22:25 Urine Color Yellow (Yellow) Urine Appearance Clear (Clear) Urine pH 7.0 (5.0-8.5) Ur Specific [place] 1.020 (1.000-1.030) Urine Protein Negative (Negative) Urine Glucose (UA) Negative (Negative)
[2021-10-12] MEDS: HALOPERIDOL 5 MG/ML INJ IM (05:01)
--- NOTE | 2021-10-12 07:54 | PC.NURSE ---
Pt admitted to floor at 0115. Pt not compliant or cooperative with cares. Pt very upset about attempt to place IV, refused HS medications. Pt encouraged to drink water; however, he stated that the water is ?drugged with the stuff that will help me sleep?. Pt was referring to the melatonin that the comic writer attempted to administer. stated he takes 3mg of Melatonin a night. ? stated pt uses CPAP at home when he is being compliant but typically does not like the mask. did not bring in CPAP, O2 sats spot checked throughout shift, >90%. ? mentioned that the patient occasionally sees things that are not there. No hallucination observed this shift. ? VS WNL. Pitting edema to bilat LE.?? At 0425 pt was acting out, calling the staff names, and attempting to stand out of bed w/o assistance. Pt would not let staff assist him. Charge notified, attempted to calm pt and he was not complying, elie called, 5mg IM Haloperidol ordered and given. Pt was able to rest in bed for the remainder of the shift, but did not fall asleep. ?
[2021-10-12] MEDS: CITALOPRAM HYDROBROMIDE 20 MG TABLET PO (08:00)
[2021-10-12] MEDS: POTASSIUM CHLORIDE 10 MEQ CAPSULE ER 40 MEQ PO (08:00)
[2021-10-12] MEDS: LEVOTHYROXINE 100 MCG TABLET PO (08:00)
[2021-10-12] MEDS: METOPROLOL SUCCINATE (XL) 100 MG TAB PO (08:00)
[2021-10-12] MEDS: LOSARTAN POTASSIUM 50 MG TABLET PO (08:01)
--- NOTE | 2021-10-12 08:48 | P.IMHP_ITS ---
Hospitalist- H&P: [facility] History of Present Illness Date Seen: 10/12/21 Chief complaint: Dementia Narrative: Salty Loya is a 81 year old male who was brought to the emergency room by family yesterday evening for concerns regarding ambulation. Patient has progressive dementia and had been having more difficulty ambulating throughout the home over the past week or so. He was seen in the ER last week to evaluate for any reversible causes of functional decline; urine culture and labs at that time were all within normal limits, with the exception of mild hypokalemia. Patient continues to decline and require more assistance at home; does not feel that she can care for him at home any longer. He has been seen by home health in their social work team had started looking into placement possibilities earlier this week. ER course and findings: - Reassuring lab results Patient admitted by [facility] hospitalist team overnight. Overnight, Salty did have some agitation, requiring IM Haldol. Eight his agitation is typically aggravated by hospital procedures. We have elected to limit blood pressure checks and will not be placing an IV, given his overall stable status and no requirements for acute medical treatment at this time. Patient's past medical history and surgical history was gleaned from chart review and discussions with . Review of Systems Status of ROS: Reports: unobtainable due to medical condition Narrative: Limited by patient's dementia, but specifically denies pain complaints for me this morning [facility] Medical History (Updated 10/12/21 @ 13:18 by Angelika Ricketts MD) History of prostate cancer Hypertension Hypothyroidism Moderate dementia Social History Highest level of school completed/degree received: Master's degree Smoking Status: Never smoker How often do you have a drink containing alcohol: never How often do you have six or more drinks on one occasion: Never AUDIT-C Alcohol total score: 0 Non-prescribed substance use: denies use Caffeine: Yes (occasional) service: No Meds Home Medications and Allergies Home Medications Medication Instructions Recorded Confirmed Type citalopram 20 mg tablet 20 mg PO DAILY 10/04/21 10/12/21 History hydrochlorothiazide 12.5 mg tablet 12.5 mg PO DAILY 10/04/21 10/12/21 History levothyroxine 100 mcg tablet 100 mcg PO DAILY 10/04/21 10/12/21 History losartan 50 mg tablet 50 mg PO DAILY 10/04/21 10/12/21 History metoprolol succinate 100 mg 100 mg PO DAILY 10/04/21 10/12/21 History tablet,extended release 24 hr pravastatin 20 mg tablet 20 mg PO HS 10/04/21 10/12/21 History Allergies Allergy/AdvReac Type Severity Reaction Status Date / Time No Known Drug Allergies Allergy Verified 10/04/21 20:27 Exam Narrative: Exam Narrative: GEN: Alert and pleasant, sitting comfortably in bed and tells me that he has ordered everything! For breakfast HEENT: Normal external ears, EOMIs bilaterally CV: RRR, No concerning murmurs, rubs, or gallops R: LCTA bilaterally without concerning wheezing, rales, or rhonchi Ext: wwp, no concerning edema Skin: No concerning skin lesions or rashes on exposed skin Neuro: No focal deficits, sitting comfortably in bed Const: Vital Signs, click to edit/add: Vital Signs - 24 hr 10/11/21 20:20 10/12/21 01:44 10/12/21 01:44 Temperature 98.9 F Pulse Rate [Left P ulse Oximeter] 78 Pulse Rate [Right Pulse Oximeter] 64 Respiratory Rate 18 18 18 Blood Pressure [Ri ght Arm] 115/99 H Blood Pressure [Ri ght Upper Arm] 225/105 H Pulse Oximetry 91 94 94 Oxygen Delivery Me thod Room Air Room Air Room Air 10/12/21 07:21 10/12/21 07:24 Temperature 97.8 F Pulse Rate [Left P ulse Oximeter] Pulse Rate [Right Pulse Oximeter] 66 66 Respiratory Rate 18 Blood Pressure [Ri ght Arm] 205/96 H Blood Pressure [Ri ght Upper Arm] Pulse Oximetry 93 Oxygen Delivery Wi thod Room Air Hospitalist - H&P: Result Labs Labs: Short CBC 10/11/21 Range/Units 21:30 WBC 9.30 (4.50-11.00) K/uL Hgb 15.4 (13.5-17.5) gm/dL Hct 46.3 (37.0-53.0) % Plt Count 262 (140-440) K/uL BMP 10/11/21 21:30 Sodium 141 Potassium 3.2 L Chloride 103 Carbon Dioxide 29 BUN 27 Creatinine 1.1 Glucose 123 H Calcium 9.5 Cardiac Enzymes 10/11/21 Range/Units 21:30 Troponin I < 0.01 L (0.01-0.04) ng/mL Liver Function 10/11/21 Range/Units 21:30 Total Bilirubin 0.4 (0.1-1.5) mg/dL AST 33 (12-35) U/L ALT 26 (4-50) U/L Alkaline Phosphatase 103 (40-150) U/L Albumin 4.5 (3.3-5.0) g/dL Urine 10/11/21 Range/Units 22:25 Urine Color Yellow (Yellow) Urine Appearance Clear (Clear) Urine pH 7.0 (5.0-8.5) Ur Specific [place] 1.020 (1.000-1.030) Urine Protein Negative (Negative) Urine Glucose (UA) Negative (Negative) Assessment and Plan Assessment and plan (1) Dementia: Status: Acute Assessment and Plan: Given patient's dementia with behavioral disturbance, unable to make a safe discharge plan at this time. Appreciate input from social work regarding placement possibilities for Salty. (2) Difficulty in walking: Status: Acute Assessment and Plan: This is likely related to patient's advanced dementia. We will have OT and PT evaluate patient. (3) Hypertension: Problem comment: Likely falsely elevated, given patient's agitation and intolerance of blood pressure checks. Status: Acute Assessment and Plan: For now, continue home medications without any changes. (4) Hypokalemia: Status: Acute Assessment and Plan: Replace potassium. (5) Hypothyroidism: Problem comment: TSH within normal limits on 10/12 Status: Inactive Plan 81-year-old male with advanced dementia, requiring higher level of care than home at this time. Social work will assist us with finding placement for this patient. At this time, he does not appear to have any acute medical conditions that require active treatment. We will continue home medications, provide interventions to decrease agitation, initiate Zyprexa at HS. Updated by phone, she was in agreement with plan her questions were answered.
--- NOTE | 2021-10-12 11:16 | REH.OT ---
Orders received for OT eval and treat. Patient has significant dementia with behaviors. OT observed pt with nursing and PT with moving from bed to chair. Due to significant dementia, patient is not appropriate for skilled OT services.
--- NOTE | 2021-10-12 14:13 | PC.NURSE ---
end of shift. pt is pleasant. he is very confused and needs frequent redirection. no pain. he is a fall risk and alarms are on both bed and chair. he was able to feed him self this am and family brought in food. he was incontinent of B and B today. brief is on. he takes pills with no problems. he is up standing with 2 assist walker and GB and a pal lift from bed to chair. he is unsteady and does not follow directions well. he does get mad with ewa cares. no SL. will monitor.
[2021-10-12] MEDS: POTASSIUM CHLORIDE 10 MEQ CAPSULE ER 20 MEQ PO (18:19)
--- NOTE | 2021-10-12 18:39 | PC.NURSE ---
End of Shift: Patient is pleasant and cooperative. Patient is alert and disoriented, and will verbalize some needs. Patient is hypertensive but vitally stable, lungs clear, BS WNL, No IV. Patient is 2 assist, EZ stand. Patient used toilet to urinate and had 1 large formed BM. Patient denies pain, and tolerating regular diet. BP's in 200's systolically, MD not concerned.
[2021-10-12] MEDS: OLANZapine 5 MG TAB.RAPDIS PO (20:40)
[2021-10-12] MEDS: MELATONIN 3 MG TABLET PO (20:41)
[2021-10-12] MEDS: ACETAMINOPHEN 325 MG TABLET 650 MG PO (20:41)
[2021-10-13 03:23] VITALS: PULSE 53; RESP 16; TEMP 36.1; O2SAT 93
--- NOTE | 2021-10-13 04:15 | PC.NURSE ---
Addendum entered by Serafin Ruiz RN 10/13/21 06:51: So over the last 1.5 hours I have managed to get his glasses back on his head instead of him just holding onto them and then he refused to take his Levothyroxine or take a drink of water so we did a pad change instead which he was not cooperative with. Original Note: VSS RA BPs not checked. Oriented to self. Seems to comprehend little that is said to him. Is pretty difficult w/transfers using the lift, was unable to understand direction to stand to try to use the walker after being up in the chair and needed a lot of coaxing to take HS meds along w/some prn Tylenol. Slept pretty well after that and has so far not been interested in any oral intake. Needed to be fed a snack of ice cream by family last evening and was unable to use a straw even with coaxing. Was incontinent of urine overnite. Is a heavy total physical assist of 2 for any cares and gets resistive w/pad changes.
[2021-10-13 07:00] VITALS: BP 220/114; PULSE 60; RESP 16; TEMP 36.6; O2SAT 93
[2021-10-13] MEDS: POTASSIUM CHLORIDE 10 MEQ CAPSULE ER 20 MEQ PO ×2 (07:57→17:38)
[2021-10-13] MEDS: LEVOTHYROXINE 100 MCG TABLET PO (07:57)
[2021-10-13] MEDS: AMLODIPINE 5 MG TABLET PO (08:50)
[2021-10-13] MEDS: CITALOPRAM HYDROBROMIDE 20 MG TABLET PO (08:50)
[2021-10-13] MEDS: METOPROLOL SUCCINATE (XL) 100 MG TAB PO (08:50)
[2021-10-13] MEDS: LOSARTAN POTASSIUM 50 MG TABLET PO (08:50)
[2021-10-13 08:58] LABS: Potassium* 3.3 mmol/L (3.6-5.1)
[2021-10-13] MEDS: POTASSIUM BICARB 25 MEQ EFFERVESCENT TAB PO ×2 (10:28→11:39)
[2021-10-13 11:00] VITALS: BP 172/126; PULSE 62; RESP 14; TEMP 36.2; O2SAT 93
[2021-10-13 12:12] LABS: Magnesium* 2.1 mg/dL (1.5-2.6)
[2021-10-13] MEDS: ACETAMINOPHEN 325 MG TABLET 650 MG PO ×2 (13:16→20:54)
[2021-10-13] MEDS: CARBOXYMETHYLCELLULOSE (REFRESH PLUS) TEARS 1 DROP EYE-BOTH (13:25)
[2021-10-13 15:00] VITALS: BP 182/101; PULSE 71; RESP 18; TEMP 36.7; O2SAT 92
--- NOTE | 2021-10-13 15:17 | P.IMPN_ITS ---
Progress Note: A&P Assessment and plan (1) Moderate dementia: Status: Acute Assessment and Plan: 1. Patient's cognitive and physical limitations have become such that his is no longer able to safely care for him in his home. 2. Physical and occupational therapy to consult and assist with assessing his current status and needs. 3. Will work with social media campaign manager to establish a safe disposition plan be on his current hospital stay. (2) Difficulty in walking: Status: Acute Assessment and Plan: 1. Continue with assessment and intervention recommendations per Physical and Occupational therapy. (3) Hypokalemia: Status: Acute Assessment and Plan: 1. Replacement therapy and monitoring. (4) Hypertension: Problem details: Likely falsely elevated, given patient's agitation and intolerance of blood pressure checks. Status: Acute Assessment and Plan: 1. Slowly increase his antihypertensive regimen and monitor his response to this. (5) History of prostate cancer: Problem details: 2011 Status: Acute Assessment and Plan: 1. Continue with monitoring. At higher risk for complications. (6) Hypothyroidism: Problem details: TSH within normal limits on 10/12 Status: Acute Assessment and Plan: 1. Continue with current supportive efforts. Plan 1. Continue to work with patient's family. Time Spent With Patient Total time spent: 30 minutes Subjective Time Seen by Provider: 08:30 Date Seen: 10/13/21 Interval history: 81-year-old man who resides in a private residence with his , his being his primary caregiver, presented at the behest of his with his indicating that she can no longer care for him. Reportedly he has advanced dementia. He requires 24 hour cares. His is no longer able to meet his needs safely and thus brings him in for further assessment and assistance with trying to establish a different, safer living situation. Reportedly his ability to assist with transfers and ambulation is becoming increasingly difficult. Reportedly he has confusion and is for the most part able to be redirected. Reportedly no longer has awareness of his needs, how to problem solve safely, and is becoming increasingly impulsive. As I visit with him at this juncture he denies any discomforts. Specifically denies any chest heaviness, pressure, tightness, or pain. Denies cough or dyspnea. Denies palpitations or chest fluttering. Denies syncope or near- syncope. Denies nausea vomiting. Is interested in eating. Nurse notes that he requires extensive assistance with transfers and cares. Exam Narrative: Exam Narrative: When I 1st visit him this morning he is sound asleep. I visit him later on in he is awake, alert, oriented to self only. Not really aware of being in the hospital or why he is here. He knows that he is not in his home and states he wants to go back home. When I see him he is friendly and cooperative. Says very little. Answer simple yes no questions at best. Lungs are clear to auscultation. Heart tones with regular rhythm. Abdomen is obese with active bowel sounds, soft, nontender. Extremities without edema. Palpable pulses upper and lower extremities. No edema lower extremities. Skin is warm, dry, intact. Moves all 4 extremities. Const: Vital Signs, click to edit/add: Vital Signs - 24 hr 10/12/21 19:42 10/12/21 23:12 10/13/21 03:23 Temperature 97.3 F L 97.2 F L 96.9 F L Pulse Rate [Right Pulse Oximeter] 72 62 53 L Respiratory Rate 16 16 16 Blood Pressure [Ri ght forearm] Pulse Oximetry 92 90 93 Oxygen Delivery Me thod Nasal Cannula Room Air Room Air 10/13/21 07:00 10/13/21 07:00 10/13/21 11:00 Temperature 97.8 F 97.1 F L Pulse Rate [Right Pulse Oximeter] 60 60 62 Respiratory Rate 16 16 14 Blood Pressure [Ri ght forearm] 220/114 H 172/126 H Pulse Oximetry 93 93 Oxygen Delivery Me thod Room Air Room Air Documenting provider has reviewed patient's vital signs: yes Labs Labs: Laboratory Results - last 24 hr 10/13/21 08:38 Potassium 3.3 L Magnesium 2.1
--- NOTE | 2021-10-13 18:19 | PC.NURSE ---
End of Shift: Patient not as pleasant and cooperative as yesterday, and confused. At times patient will swallow pills, other times he will chew them. Patient has been more resistant to cares today and sleeping the majority of the day. Patient has only eaten 25% of meals, and falling asleep during breakfast and dinner. Patient nonambulatory using EZ stand. Patient urinating and incontinent of bowel and bladder. Patient had 1 tiny BM. Patient's eyes have reddened as the day has progressed, MD notified. Patient hypertensive but vitally stable, lungs clear, BS WNL, No IV. Patient given tylenol for comfort/headache.
[2021-10-13 20:15] VITALS: PULSE 67; RESP 20; TEMP 36.6; O2SAT 92
[2021-10-13] MEDS: MELATONIN 3 MG TABLET PO (20:54)
[2021-10-13] MEDS: OLANZapine 5 MG TAB.RAPDIS PO (20:54)
[2021-10-13] MEDS: ERYTHROMYCIN 1 GM TUBE 1 APPLIC EYE-BOTH (21:23)
[2021-10-13 23:15] VITALS: PULSE 70; RESP 16; TEMP 36.3; O2SAT 90
[2021-10-14] VITALS (7 sets, daily range): BP systolic 182–207; BP diastolic 97–101; PULSE 72–83; RESP 16–20; TEMP 35.9–37; O2SAT 90–92
--- NOTE | 2021-10-14 04:21 | PC.NURSE ---
VSS RA. BP not measured. Pt remained resistive w/cares/meds. Was trying to climb out of bed x1. Eye ungt given w/ doing it because I am not his favorite person. Tylenol given at HS. Crushed and liquified HS meds as he spat pills out whole. And then he tried to spit out the crushed and liquified meds. Pt rested well thereafter. Incontinent of urine T+R total cares q2h w/heavy A2. Has so far declined oral intake.
[2021-10-14] MEDS: LEVOTHYROXINE 100 MCG TABLET PO (06:31)
[2021-10-14 07:31] LABS: Potassium* 3.5 mmol/L (3.6-5.1)
--- NOTE | 2021-10-14 09:23 | P.IMPN_ITS ---
Progress Note: A&P Assessment and plan (1) Moderate dementia: Status: Acute Assessment and Plan: 1. 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 No longer able to safely residing his home with his as his primary care transitions manager. No obviously requires prison care level of services to meet his daily needs. 2. Continue to work with social services coordinator in an effort to try to establish a long-term safe living situation for him. (2) Difficulty in walking: Status: Acute Assessment and Plan: 1. Declining functional abilities in conjunction with declining cognitive abilities. 2. Impaired gait and mobility. 3. Requires assistance with transfers and gait due to safety concerns. Safety concerns stem from generalized weakness as well as impaired cognition and poor judgment and impulsivity. (3) Hypokalemia: Status: Acute Assessment and Plan: 1. Slowly improving. (4) Hypertension: Problem details: Likely falsely elevated, given patient's agitation and intolerance of blood pressure checks. Status: Acute Assessment and Plan: 1. We are gradually making progress in management of his hypertension. 2. Continue with gradual adjustment in antihypertensive regimen. (5) History of prostate cancer: Problem details: 2011 Status: Acute Assessment and Plan: 1. No obvious recurrence. (6) Hypothyroidism: Problem details: TSH within normal limits on 10/12 Status: Acute Assessment and Plan: 1. Adequately managed at this time. Plan 1. Reviewed with patient. 2. Continue discussions with his . 3. Proceed as stated above. Time Spent With Patient Total time spent: 20 minutes Subjective Time Seen by Provider: 08:30 Date Seen: 10/14/21 Interval history: Hospital day 3. 81-year-old man who resides in a private residence with his , his primary caregiver, presented for initial assessment because his indicates that she can no longer care for him. Reportedly he has advanced dementia. He requires 24 hour cares. His is no longer able to meet his needs safely and thus brings him in for further assessment and assistance with trying to establish a different, safer living situation. Reportedly his ability to assist with transfers and ambulation is becoming increasingly difficult. Reportedly he has confusion and is for the most part able to be redirected. Still does not have awareness of his needs, how to problem solve safely, and remains impulsive. Less talkative this morning. Nevertheless, he denies any discomforts. Specif ically denies any chest heaviness, pressure, tightness, or pain. Denies cough or dyspnea. Denies palpitations or chest fluttering. Denies syncope or near- syncope. Denies nausea vomiting. Is interested in eating. He obviously does not know how to place his food order. Continues to require extensive assistance with transfers and cares. Nurse notes how he inappropriately grabs others when others are trying to help him. Is redirectable. Exam Narrative: Exam Narrative: Alert. Oriented to self only. Not oriented to place, time, situation. No acute distress. Does not engage in any spontaneous conversation. Lungs are clear to auscultation. Heart tones with regular rhythm. Abdomen with active bowel sounds, soft, nontender. Extremities without edema. Able to transfer with assist of 2. Skin is intact. No focal motor neurologic deficits. Const: Vital Signs, click to edit/add: Vital Signs - 24 hr 10/13/21 11:00 10/13/21 15:00 10/13/21 15:00 Temperature 97.1 F L 98.1 F Pulse Rate [Right Pulse Oximeter] 62 71 71 Respiratory Rate 14 18 18 Blood Pressure [Ri ght forearm] 172/126 H 182/101 H Pulse Oximetry 93 92 Oxygen Delivery Me thod Room Air Room Air 10/13/21 20:15 10/13/21 23:15 10/14/21 03:02 Temperature 97.8 F 97.3 F L 96.6 F L Pulse Rate [Right Pulse Oximeter] 67 70 72 Respiratory Rate 20 16 16 Blood Pressure [Ri ght forearm] Pulse Oximetry 92 90 90 Oxygen Delivery Me thod Room Air Room Air Room Air Documenting provider has reviewed patient's vital signs: yes Labs Labs: Laboratory Results - last 24 hr 10/13/21 10/14/21 08:38 06:50 Potassium 3.5 L Magnesium 2.1
[2021-10-14] MEDS: LOSARTAN POTASSIUM 50 MG TABLET 100 MG PO (10:19)
[2021-10-14] MEDS: CITALOPRAM HYDROBROMIDE 20 MG TABLET PO (10:19)
[2021-10-14] MEDS: METOPROLOL SUCCINATE (XL) 100 MG TAB PO (10:20)
[2021-10-14] MEDS: AMLODIPINE 5 MG TABLET PO (10:20)
[2021-10-14] MEDS: POTASSIUM CHLORIDE 10 MEQ CAPSULE ER 20 MEQ PO ×2 (10:20→17:16)
--- NOTE | 2021-10-14 19:21 | PC.NURSE ---
Patient very drowsy this morning. Unable to participate in easy stand transfer. Ceiling lift is used to get pt to chair. Pt is pleasant at times and other times he is calling out and uncooperative. Appetite is fair - required assistance with feeding. Incontinent of bladder - turned and repositioned throughout the day. Up in the chair for a majority of the day.
[2021-10-14] MEDS: MELATONIN 3 MG TABLET PO (20:43)
[2021-10-14] MEDS: QUETIAPINE 25 MG TABLET 12.5 MG PO (20:44)
[2021-10-14] MEDS: CARBOXYMETHYLCELLULOSE (REFRESH PLUS) TEARS 1 DROP EYE-BOTH (20:46)
[2021-10-15 02:24] VITALS: RESP 16
--- NOTE | 2021-10-15 05:04 | PC.NURSE ---
Pt rested well this night. Incontinent of urine. Unable to communicate effectively. Rambling speech. Resistive to cares. Pills taken with applesauce. Up with EZ stand. Very confused.
[2021-10-15] MEDS: LEVOTHYROXINE 100 MCG TABLET PO (06:22)
[2021-10-15 07:00] VITALS: PULSE 76; RESP 18; O2SAT 95
[2021-10-15] MEDS: LOSARTAN POTASSIUM 50 MG TABLET 100 MG PO (08:19)
[2021-10-15] MEDS: AMLODIPINE 5 MG TABLET PO (08:20)
[2021-10-15] MEDS: METOPROLOL SUCCINATE (XL) 100 MG TAB PO (08:20)
[2021-10-15] MEDS: POTASSIUM CHLORIDE 10 MEQ CAPSULE ER 20 MEQ PO ×2 (08:21→18:35)
[2021-10-15] MEDS: CITALOPRAM HYDROBROMIDE 20 MG TABLET PO (08:21)
[2021-10-15] MEDS: CARBOXYMETHYLCELLULOSE (REFRESH PLUS) TEARS 1 DROP EYE-BOTH ×2 (09:53→20:52)
[2021-10-15 10:06] LABS: Potassium* 3.4 mmol/L (3.6-5.1)
--- NOTE | 2021-10-15 13:12 | PC.NURSE ---
has not required 1:1 care
--- NOTE | 2021-10-15 13:12 | PC.NURSE ---
not required 1:1 care
--- NOTE | 2021-10-15 13:14 | PC.NURSE ---
End of Shift Note: Patient has been pleasant for my 8 hour shift. No behaviors noted. Took his medications whole in pudding. His appetitie he has only eaten around 50% of his meals. Did use the EZ stand to get him up to the chair. He was actually smiling as we transferred him. We explained what we were doing as we went along and appeared to do well with this. Will continue to monitor.
--- NOTE | 2021-10-15 14:53 | PM.IMPN1 ---
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 Status: Acute Assessment and Plan: 1. Continue with efforts to try to establish a safe disposition plan for him. 2. Spoke with his and cousin today. (2) Difficulty in walking: Status: Acute Assessment and Plan: 1. Still requiring heavy assist with all transfers. Essentially living a [id number] existence at this time. (3) Hypokalemia: Status: Acute Assessment and Plan: 1. I stopped his hydrochlorothiazide. 2. Continue with potassium supplementation and monitoring. (4) Hypertension: Problem details: Likely falsely elevated, given patient's agitation and intolerance of blood pressure checks. Status: Acute Assessment and Plan: 1. Will need to add additional antihypertensive medication to his current regimen and continue to follow. (5) History of prostate cancer: Problem details: 2011 Status: Acute (6) Hypothyroidism: Problem details: TSH within normal limits on 10/12 Status: Acute Plan 1. Patient, , cousin are agreeable to above stated plans and recommendations. Time Spent With Patient Total time spent: 30 minutes Subjective Time Seen by Provider: 09:00 Date Seen: 10/15/21 Interval history: Hospital day 4. 81-year-old man who has been residing in a private residence with his , his primary caregiver, presented for assessment to our emergency department because his can not no longer care for him safely in their home. Reportedly he has advanced dementia, previously specified as Alzheimer's type dementia verses frontotemporal dementia. He requires 24 hour cares. His requests further assessment for possible assistance with trying to establish a safer living situation for her . Reportedly his ability to assist with transfers and ambulation is becoming increasingly difficult. Reportedly he has confusion and is for the most part able to be redirected. Still does not have awareness of his needs, how to problem solve safely, is forgetful, and remains impulsive. With his and cousin present, he is more talkative this morning. He denies any discomforts. Specifically denies any chest heaviness, pressure, tightness, or pain. Denies cough or dyspnea. Denies palpitations or chest fluttering. Denies syncope or near-syncope. Denies nausea vomiting. Is interested in eating. He obviously does not know how to place his food order. Continues to require extensive assistance with transfers and cares. Nurse notes how he inappropriately grabs others when others are trying to help him. Is redirectable. Exam Narrative: Exam Narrative: Requires the use of lift to transfer him from bed to chair. More awake today than he was yesterday, since we have had him on quetiapine as opposed to the olanzapine. Alert, oriented to self only. More talkative today than yesterday. Interestingly he can engage with his and cousin in regard to long-term memory issues but is not able to engage meaningfully with his family or staff from the hospital in regard to short-term memory matters. Lungs remain clear to auscultation. Heart tones with regular rhythm. Abdomen is obese with active bowel sounds, soft, nontender. Able to feed himself after food prep and setup. Const: Vital Signs, click to edit/add: Vital Signs - 24 hr 10/14/21 15:00 10/14/21 15:00 10/14/21 19:00 Temperature 97.6 F Pulse Rate [Right Pulse Oximeter] 74 83 81 Respiratory Rate 20 18 16 Blood Pressure [Ri ght forearm] 207/97 H Pulse Oximetry 91 92 Oxygen Delivery Me thod Room Air Room Air 10/14/21 22:38 10/14/21 22:44 10/15/21 02:24 Temperature 98 F Pulse Rate [Right Pulse Oximeter] 81 Respiratory Rate 18 18 16 Blood Pressure [Ri ght forearm] Pulse Oximetry Oxygen Delivery Me thod 10/15/21 07:00 Temperature Pulse Rate [Right Pulse Oximeter] 76 Respiratory Rate 18 Blood Pressure [Ri ght forearm] Pulse Oximetry 95 Oxygen Delivery Me thod Room Air Documenting provider has reviewed patient's vital signs: yes Labs Labs: Laboratory Results - last 24 hr 10/15/21 09:19 Potassium 3.4 L
--- NOTE | 2021-10-15 14:58 | PC.SOCIAL ---
Discharge plan: Received call from [facility] on [facility] stating pt has been accepted to memory care assisted living at [facility]. Family has toured and started paperwork with them today. Facility will have a bed available fro admit on 10/17/21 at 10:00am. 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
[2021-10-15 15:00] VITALS: BP 164/109; PULSE 73; RESP 16; TEMP 36.3; O2SAT 90
[2021-10-15] MEDS: POTASSIUM BICARB 25 MEQ EFFERVESCENT TAB PO ×3 (15:44→20:50)
[2021-10-15 19:00] VITALS: BP 184/119; PULSE 79; RESP 18; O2SAT 93
--- NOTE | 2021-10-15 19:03 | PC.NURSE ---
End of Shift: Patient pleasant and cooperative. Patient hypertensive but vitally stable, lungs clear, BS WNL, No IV. Patient incontinent of bowel and bladder. Patient EZ-stand or ceiling lift depending on how helpful patient is. Patient takes meds with apple sauce. Patient needs to be fed. Patient's her for dinner, feeding patient. Patient needs to be fed.
[2021-10-15] MEDS: QUETIAPINE 25 MG TABLET 12.5 MG PO (20:51)
[2021-10-15] MEDS: MELATONIN 3 MG TABLET PO (20:52)
--- NOTE | 2021-10-15 22:44 | PC.NURSE ---
Pt VSS. Blood pressure slightly high talked with MD and new order for Metoprolol 50mg po ordered. Pt ate only bites at supper. Inc of bowel and bladder.
[2021-10-15] MEDS: METOPROLOL TARTRATE 100 MG TABLET 50 MG PO (23:06)
[2021-10-16] VITALS (7 sets, daily range): BP systolic 128–191; BP diastolic 101–126; PULSE 62–84; RESP 16–18; TEMP 36.6–37; O2SAT 90–94
--- NOTE | 2021-10-16 04:51 | PC.NURSE ---
VSS RA. No BP checks. Rested well this shift. T+R Q2H incon urine and x1 small liquid stool. Max physical assist of 2 w/cares.
[2021-10-16] MEDS: LEVOTHYROXINE 100 MCG TABLET PO (06:30)
[2021-10-16] MEDS: POTASSIUM CHLORIDE 10 MEQ CAPSULE ER 20 MEQ PO (09:13)
[2021-10-16] MEDS: LOSARTAN POTASSIUM 50 MG TABLET 100 MG PO (09:14)
[2021-10-16] MEDS: CITALOPRAM HYDROBROMIDE 20 MG TABLET PO (09:14)
[2021-10-16] MEDS: METOPROLOL SUCCINATE (XL) 50 MG TAB 150 MG PO (09:14)
[2021-10-16] MEDS: AMLODIPINE 5 MG TABLET 10 MG PO (09:14)
[2021-10-16] MEDS: SPIRONOLACTONE 25 MG TABLET PO (09:14)
--- NOTE | 2021-10-16 11:43 | CRLHL7_ITS ---
For Patients: As a result of the Cures Act, medical imaging exams and procedure reports are released immediately into your electronic medical record. You may view this report before your referring provider. If you have questions, please contact your health care provider. INDICATION: Change in mental status TECHNIQUE: CT head without contrast. COMPARISON: FINDINGS: CSF spaces: Within normal limits for age. Brain parenchyma: The carmona-white differentiation is normal. No sign of mass, hemorrhage, or midline shift. Stable changes of encephalomalacia right parieto-occipital region. Periventricular white matter changes consistent chronic microvascular disease. Skull base and calvarium: The visualized paranasal sinuses and mastoid air cells demonstrate no acute or significant findings. The visualized orbits are grossly unremarkable. No skull fractures. IMPRESSION: No acute intracranial abnormalities. Ventricular white matter changes consistent chronic microvascular disease. Stable changes of encephalomalacia right parieto-occipital region. Dictated by Navneet Henry MD @ 10/16/2021 1:13:12 PM Please note that all CT scans at this facility use dose modulation, iterative reconstruction, and/or weight-based dosing when appropriate to reduce radiation dose to as low as reasonably achievable. Dictated by: Navneet Henry MD @ 10/16/2021 13:14:08 (Electronically Signed)
[2021-10-16 11:55] LABS: HCO3 VBG 24 mmol/L (21-28); PCO2 VBG 34 mmHG (40-50); PO2 VBG 58.7 mmHG (25-47)
[2021-10-16 12:11] LABS: Potassium* 4.2 mmol/L (3.6-5.1)
[2021-10-16 12:13] LABS: Estimated Glomerular Filt Rate 77 ml/min
--- NOTE | 2021-10-16 16:47 | P.IMPN_ITS ---
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 Status: Acute (2) Difficulty in walking: Status: Acute (3) Hypokalemia: Status: Acute (4) Hypertension: Problem details: Likely falsely elevated, given patient's agitation and intolerance of blood pressure checks. Status: Acute (5) History of prostate cancer: Problem details: 2011 Status: Acute (6) Hypothyroidism: Problem details: TSH within normal limits on 10/12 Status: Acute Plan 1. Reviewed impression with patient and . 2. Will obtain MRI of head tomorrow if possible. Consider evolving ce rebrovascular disease versus neoplastic disease verses progressive neuro degenerative changes. prefers this additional degree of assessment. 3. May potentially have a memory care bed soon. Meanwhile continue with cares here until we find appropriate, safe disposition for him beyond the hospital stay. Time Spent With Patient Total time spent: 30 minutes Subjective Time Seen by Provider: 10:00 Date Seen: 10/16/21 Interval history: Hospital day 5. 81-year-old man who has been residing in a private residence with his , his primary caregiver, presented for assessment to our emergency department because his can not no longer care for him safely in their home. Reportedly he has advanced dementia, previously specified as Alzheimer's type dementia verses f rontotemporal dementia. He requires 24 hour cares. His requests further assessment for possible assistance with trying to establish a safer living situation for her . Reportedly his ability to assist with transfers and ambulation is becoming increasingly difficult. Reportedly he has confusion and is for the most part able to be redirected. Still does not have awareness of his needs, how to problem solve safely, is forgetful, and remains impulsive. He has periods of wakefullness and periods of sleepiness. When awake he seems quite satisfied. He indicates no discomfort. Continues to require assistance with all 6 of 6 ADLs at this time. Exam Narrative: Exam Narrative: Awake and asleep at various times throughout the day. When awake appears quite satisfied. Requires assistance with all ADLs now. Oriented to self, and recognizes family. Not oriented to place, time, or situation. Lungs clear to auscultation. Heart tones with regular rhythm. Abdomen with active bowel sounds, soft, nontender. Extremities without edema. No obvious focal motor neurologic deficits. Follows basic, simple commands only. Const: Vital Signs, click to edit/add: Vital Signs - 24 hr 10/15/21 19:00 10/16/21 00:02 10/16/21 03:05 Temperature 98.6 F 98.5 F Pulse Rate [Right Pulse Oximeter] 79 72 81 Respiratory Rate 18 16 16 Blood Pressure [Ri ght forearm] 184/119 H Pulse Oximetry 93 91 94 Oxygen Delivery Me thod Room Air Room Air Room Air 10/16/21 07:00 10/16/21 11:00 10/16/21 15:00 Temperature 97.8 F 98.2 F 98.2 F Pulse Rate [Right Pulse Oximeter] 72 72 62 Respiratory Rate 16 16 16 Blood Pressure [Ri ght forearm] 167/103 H 182/122 H 190/126 H Pulse Oximetry 92 91 91 Oxygen Delivery Me thod Room Air Room Air Room Air Documenting provider has reviewed patient's vital signs: yes Labs Labs: Laboratory Results - last 24 hr 10/16/21 10/16/21 11:50 11:50 VBG pH 7.460 H VBG pCO2 34 L VBG pO2 58.7 H VBG HCO3 24 Potassium 4.2 Creatinine 1.0 Estimated Creat Clear 63.80 Estimated GFR [address] scan - head: Attestation: I have reviewed the pertinent imaging results. Radiologist's impression: No acute intracranial abnormalities. Ventricular white matter changes consistent chronic microvascular disease. Stable changes of encephalomalacia right parieto-occipital region.
--- NOTE | 2021-10-16 16:51 | PC.NURSE ---
PATIENT TOTAL ASSIST WITH CARES AND MOBILITY, UP WITH LIFT TOLERATING WELL, TURN AND REPO, FEEDER EATING A FEW BITES TO 25% OF MEALS, TOOK PILL WITH PUDDING DID CHEW SOME OF THE PILLS BUT OTHERWISE WAS ABLE TO GET MEDICATIONS DOWN, THIS AFTERNOON DECLINED LUNCH BY CLENCHING MOUTH WITH FOOD/DRINK, FAMILY PRESTENT AT BEDSIDE AND SUPPORTIVE, BEEN SLEEPING MOST OF SHIFT DOES AROUND TO SHAKING/LIGHT STERNAL RUB MD AWARE, MD ALSO UPDATED ON ELEVATED B/PS AFTER MEDICATIONS SEE ORDERS.
[2021-10-16] MEDS: CARBOXYMETHYLCELLULOSE (REFRESH PLUS) TEARS 1 DROP EYE-BOTH (19:49)
[2021-10-17 03:00] VITALS: PULSE 80; RESP 16; TEMP 35.8; O2SAT 95
--- NOTE | 2021-10-17 04:23 | PC.NURSE ---
Pt has been cooperative. Turned and Repositioned every couple oaf hours. He has been incontinent this shift of both bowel and bladdar. minimal intake and family had attempted to get him to take some sipps also. Took about 90ml in in the form of a popcycle
[2021-10-17 07:00] VITALS: BP 193/117; PULSE 72; RESP 18; TEMP 36.7; O2SAT 94
[2021-10-17] MEDS: METOPROLOL SUCCINATE (XL) 50 MG TAB 150 MG PO (08:31)
[2021-10-17] MEDS: 0.9 % SODIUM CHLORIDE 500 ML 500 ML 1000 ML IV (09:42)
[2021-10-17 11:00] VITALS: BP 204/89; PULSE 68; RESP 18; TEMP 36.7; O2SAT 92
--- NOTE | 2021-10-17 14:49 | PC.NURSE ---
PATIENT DISCHARGED TO THE [facility] AT [facility] VIA EMS, AWARE OF TRANSFER, PATIENT TOTAL ASSISTANCE WITH CARES AND TRANSFERS (UP WITH CEILING LIFT), REFUSING TO TAKE MEDICATIONS THIS MORNING CLENCHES MOUTH DOWN WHEN TRYING TO GIVE PILLS, DECLINING TO EAT OR DRINK THIS MORNING, AGAIN CLENCHING MOUTH WHEN TRYING TO FEED, INCONTINENT OF BOWEL AND BLADDER, APPEARS TO NOT BE IN PAIN WITH EQUAL RESPIRATIONS/SMILING AT STAFFING AND FAMILY MEMBERS, VERY TIRED THIS MORNING, WAS MORE ALERT THIS AFTERNOON AND TALKING WITH STAFFING, AT TIMES SPEECH WAS APPROPRIATE TO QUESTIONS OTHERWISE SPEECH PINKY, NURSE TO NURSE GIVEN TO BK AT [facility] WELL MESSAGE LEFT ON DELAY OF TRANSPORT, LEFT VIA EMS AT 1430.
--- NOTE | 2021-10-23 08:35 | P.DS_ITS ---
DS: Providers Provider Time Seen by Provider: 11:00 Date Seen: 10/17/21 Date of admission: 10/12/21 13:23 Primary care physician: Gregg Carty MD Admitting Clinician: Nelson Reyes MD Consults: 10/12/21 02:03 Consult to Occupational Therapy [CONS] Routine Comment: Reason(s) for OT Consult:: Difficulty Managing ADLs Any Restrictions?:: See Comment Comment: weakness Consult to Physical Therapy [CONS] Routine Comment: Reason(s) for PT Consult:: Unstable Gait Any Restrictions?:: See Comment 10/15/21 10:45 Consult to Lsw [CONS] Routine Comment: Reason for Consult:: Discharge Planning Needs Attending Physician on discharge: Sandeep Hayes MD Date of Discharge: 10/17/21 DS: Diagnosis Discharge Diagnosis (1) Altered mental status: Status: Acute (2) Severe dementia: Status: Acute (3) Dementia due to Alzheimer's disease: Status: Acute (4) Physical debility: Status: Acute (5) Difficulty in walking: Status: Acute (6) Hypothyroidism: Status: Acute Problem details: TSH within normal limits on 10/12 (7) History of prostate cancer: Status: Acute Problem details: 2011 (8) Hypokalemia: Status: Acute (9) Hypertension: Status: Acute DS: Summary Hospital Course Hospital Course: 81 year old man with rapidly progressive decrease in cognitive and functional abilities. No associated focal motor or sensory neurological deficits. CT of head without contrast negative for acute processes. No infectious, metabolic, endocrine, hematologic, orthopedic, urologic, gastroenterologic, or other identifiable causes of this decline apparent. has been his primary hospice care transitions coordinator and is no longer able to safely meet his physical needs in their home, and now requests supportive cares for her in a memory care setting. The last couple of days prior to discharge from the hospital his is particularly anxious about the patient's overarching declining health. She is searching for a quick fix to his declining health. I review with her multiple times how we have evaluated him and found no easily identifiable cause for his progressive decline in health other than his underlying dementia likely of the Alzheimer's type versus frontotemporal dementia. With much grief, on the date of discharge she accepts the poor prognosis for her . Status at Discharge Functional status at discharge: bed bound Overall status at discharge: other (On presentation to the hospital the patient was totally dependent for all ADLs. He is unable to communicate any of his needs or wants. This had been evolving for the last few weeks. His condition at the time of discharge is similar.) Time Spent with Patient Time attestation: Total time spent providing and/or coordinating discharge services: Exam Narrative: Exam Narrative: Awake and asleep at various times throughout the day.? When awake appears quite satisfied. Requires assistance with all ADLs now. Oriented to self, and recognizes family.? Not oriented to place, time, or situation. Lungs clear to auscultation.? Heart tones with regular rhythm.? Abdomen with active bowel sounds, soft, nontender.? Extremities without edema.? No obvious focal motor neurologic deficits.? Follows basic, simple commands only. Const: Documenting provider has reviewed patient's vital signs: yes DS: Data Imaging CT scan - head: Attestation: I have reviewed the pertinent imaging results. Radiologist's impression: No acute intracranial abnormalities. Ventricular white matter changes consistent chronic microvascular disease. Stable changes of encephalomalacia right parieto-occipital region. Discharge Plan Discharge Disposition: Xfer Other Discharge Location: [facility] Date of Admission: 10/12/21 13:23 Attending Provider on Discharge: Sandeep Hayes Primary Care Provider: Gregg Caryt Condition: Stable Anticipated Discharge Date/Time: 10/17/21 11:30 Discharge Medications: New losartan 50 mg Tablet 100 mg PO DAILY Qty: 30 0RF quetiapine 25 mg Tablet 12.5 mg PO HS 30 Days Qty: 15 0RF potassium chloride 10 mEq Capsule, Extended Release 20 meq PO BIDWM 30 Days Qty: 60 0RF acetaminophen 325 mg Tablet 650 mg PO Q6H PRN30 Days Qty: 50 0RF metoprolol succinate 50 mg Tablet Extended Release 24 Hr 150 mg PO DAILY 30 Days Qty: 90 0RF amlodipine 5 mg Tablet 5 mg PO DAILY 30 Days Qty: 30 0RF spironolactone 25 mg Tablet 12.5 mg PO DAILY 30 Days Qty: 15 0RF carboxymethylcellulose sodium [Refresh Plus] 0.5 % Dropperette 1 drp ophthalmic (eye) BID PRN (Reason: Ocular lubricant) 30 Days Qty: 50 0RF Continued levothyroxine 100 mcg tablet 100 mcg PO DAILY citalopram 20 mg tablet 20 mg PO DAILY pravastatin 20 mg tablet 20 mg PO HS Discontinued losartan 50 mg tablet 50 mg PO DAILY metoprolol succinate 100 mg tablet extended release 24 hr 100 mg PO DAILY hydrochlorothiazide 12.5 mg tablet 12.5 mg PO DAILY Discharge Orders: Discharge Order (Routine); Ordered 10/17/21 Ordered By: Sandeep Hayes Activity Level: Activity as Tolerated Activity Detail: total assist with all activities Discharge Diet: Regular Follow Up Appointments: Gregg Carty MD [Primary Care Provider] - Forms: [facility] Info Instructions Hospital Course: 81 year old man with rapidly progressive decrease in cognitive and functional abilities. No associated focal motor or sensory neurological deficits. CT of head without contrast negative for acute processes. No infectious, metabolic, endocrine, hematologic, orthopedic, urologic, gastroenterologic, or other identifiable causes of this decline apparent. has been his primary hospice care transitions coordinator and is no longer able to safely meet his physical needs in their home, and now requests supportive cares for her in a memory care setting. The last couple of days prior to discharge from the hospital his is particularly anxious about the patient's overarching declining health. She is searching for a quick fix to his declining health. I review with her multiple times how we have evaluated him and found no easily identifiable cause for his progressive decline in health other than his underlying dementia likely of the Alzheimer's type versus frontotemporal dementia. With much grief, on the date of discharge she accepts the poor prognosis for her .
== END 2021-10-17 14:30 | disposition other institution (70) | DRG 57 ==
LOC: ED 23:38 → MEDSURG 10-12 00:54
PROVIDERS: Family Medicine; Internal Medicine; Admitting Provider Internal Medicine; Emergency Provider Family Medicine; PCP Family Medicine; Visit Provider Internal Medicine
DX: G30.9 Alzheimer's disease, unspecified (principal); F02.80 Dementia in other diseases classified elsewhere, unspecified severity, without behavioral disturbance, psychotic disturbance, mood disturbance, and anxiety; I10 Essential (primary) hypertension; R26.9 Unspecified abnormalities of gait and mobility; E87.6 Hypokalemia; E03.9 Hypothyroidism, unspecified; Z85.46 Personal history of malignant neoplasm of prostate
CPT/HCPCS: 36415; 70450; 80053; 81001; 82565; 82803; 83735; 84132; 84443; 84484; 85025; 87086; 87635; 97161; 97530; 99284; A9270; G0378; G0379; J1630; J7120

== ENCOUNTER 2021-10-17 14:16 | Outpatient (CLI) | payer MEDICARE, BC, SELFPAY | END 2021-10-17 14:17 | disposition home or self-care (01) | LOC: AMB 10-22 15:56 | PROVIDERS: PCP Family Medicine; Visit Provider Family Medicine | DX: F03.90 Unspecified dementia, unspecified severity, without behavioral disturbance, psychotic disturbance, mood disturbance, and anxiety (principal) | CPT/HCPCS: A0425; A0428 ==

== ENCOUNTER 2021-10-18 23:49 | Outpatient (CLI) | payer MEDICARE, BC, SELFPAY ==
--- OUTSIDE RECORDS SUMMARY | 2021-10-30 06:47 | XMS_ITS | Encounter Summary ---
:1940 Author Organization [place] Address [address] [place] [id number] Care Team Providers Name Role Phone No Ref-Primary, Physician Primary Care Provider [phone] Encounter Details Date Type Department Care Team Description 03/19/2020 [facility] [id number] Social History Tobacco Use Types Packs/Day Years Used Date Never Assessed Sex Assigned at Date Recorded Not on file documented as of this encounter Plan of Treatment Not on filedocumented as of this encounter Visit Diagnoses Not on filedocumented in this encounter Care Teams Senior Hardware Design Engineer Relationship Specialty Start Date End Date No Ref-Primary, Physician PCP - General 03/16/20 documented as of this encounter
--- OUTSIDE RECORDS SUMMARY | 2021-10-30 06:47 | XMS_ITS | Clinical Summary ---
:1940 Author Organization [employer] [place] [address] Care Team Providers Name Role Phone Seamus Holley DO Unavailable [phone] Rudy Ohara MD Unavailable [phone] [facility] Care, Samuel Unavailable Allergies Active Allergy Reactions Severity Noted Date Comments Atorvastatin Other - Describe In Comment Field 014 Muscle pain Lisinopril Cough 12/01/2009 Medications Medication Sig Dispensed Refills Start End Status Date Date aspirin enteric coated Take 1 tablet 0 02/23/19 Active 81 mg tablet by mouth once 13 daily with a meal. lactobacillus Take 1 0 12/06/19 Active rhamnosus, GG, capsule by 17 (CULTURELLE) 10 mouth once billion cell daily. capsuleIndications: Medicare annual wellness visit, subsequent vitamin B complex Take 1 tablet 0 Active (B-COMPLEX VITAMIN) by mouth tablet every morning. ascorbic acid, vitamin Take 1,000 mg 0 Active C, (VITAMIN C) 1,000 by mouth at mg tablet bedtime. medication order Aller-Max 0 Act james composer (quercetin, bromelain and vitamin C). Patient takes 1 capsule by mouth twice daily. cod liver oil oil Take 5 mL by 1 Bottle 0 08/04/19 Active mouth once 19 daily. nut.tx.impaired digest Take 1 Packet 0 05/03/19 Active fxn (MCT PRO-VETO) pack by mouth. 20 cholecalciferol Take 1 0 11/24/19 Acti ve (VITAMIN D-3) 2,000 capsule by 20 unit mouth once capsuleIndications: daily. Vitamin D deficiency triamcinolone Apply 30 g 2 03/08/19 Active (ARISTOCORT; KENALOG) topically to 21 0.1 % affected creamIndications: area(s) 3 Chronic eczema times daily if needed for Other (Specify) (dry itchy skin). glucosamine 500 mg 0 A ctive capsule levothyroxine Take 1 Tablet 90 Tablet 1 05/09/19 Ac tive (SYNTHROID) 100 mcg (100 mcg) by 22 tabletIndications: mouth once Hypothyroidism daily. (acquired) hydroCHLOROthiazide Take 1 Tablet 90 Tablet 3 08/02/19 Active 12.5 mg (12.5 mg) by 22 tabletIndications: mouth once Essential hypertension daily. losartan (COZAAR) 50 Take 1.5 135 Tablet 3 08/02/19 Active mg tabletIndications: Tablets (75 22 Essential hypertension mg) by mouth once daily. metoprolol succinate Take 1 Tablet 90 Tablet 3 08/02/19 Active (TOPROL XL) 100 mg (100 mg) by 22 Sustained-Release mouth once tabletIndications: daily. Essential hypertension CPAPIndications: CPAP machine 1 Each 09/14/19 Active Obstructive sleep for home use 22 apnea at pressure: 15 cm/H2O with epr 3 , Heated humidifier x 1, Humidifier chamber x 1, Full face mask with cushion x 1, standard hose tubing x 1, Headgear x 1, Filters: Disposable x 1pk & Reusable x 1pk, Length of Need: 99 months, Frequency of use: Daily citalopram (CELEXA) 20 TAKE 1 TABLET 30 Tablet 0 10/09/1909/04 Active mg tabletIndications: EVERY MORNING 022 Depression, recurrent (HC) coenzyme q10 (COQ-10) Take 1 180 capsule 1 06/26/19 Discontinued 100 mg capIndications: capsule by (*Med Mixed hyperlipidemia mouth 2 times complete/Regime daily. n complete/L evel of care ch gregory) niacin (NIACOR) 500 mg Take 1 tablet 90 tablet 3 09/26/1910/04 Discontinued tabletIndications: by mouth once 18 022 (*Med Mixed hyperlipidemia daily. ineffective) donepeziL (ARICEPT) 10 Take 1 Tablet 90 Tablet 3 02/08/2010/04 Discontinued mg tabletIndications: (10 mg) by (*Discontinued Alzheimer's disease mouth at by another (HC) bedtime. clinician) pravastatin Take 1 Tablet 90 Tablet 3 08/02/19 Disc ontinued (PRAVACHOL) 20 mg (20 mg) by ( *Med tabletIndications: mouth at i neffective) Mixed hyperlipidemia bedtime. 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 There is some increase in the right to left shunting with Valsalva release. Patient started on Coumadin and ASA. 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 Saw counselor once. 04/03/2009 Mixed hyperlipidemia 08/06/2006 Overview: Now taking Niacinamide and Lipitor 20 mg at bedtime Essential hypertension 08/06/2006 Occipital stroke Resolved Problems Problem Noted Date Resolved Date Encounter for recheck of abscess following incision and 06/202002/29/2020 drainage Elevated serum creatinine 11/11/2011 12/23/2011 Finger laceration involving tendon 01/08/200804/13 Encounters Date Type Specialty Care Team Description 10/23/2021 Home Care Visit Tennille Robledo, PT EPISO DE DISCHARGE 10/19/2021 Orders Only Scanner <No scans attac hed> 10/19/2021 Telephone Pcp, No Follow Up (Salty Loya er visit 10/18/21 ) 10/19/2021 Telephone Pcp, No Error-please dayanna granados (error/) 10/16/2021 Orders Only Scanner <No scans attac hed> 10/14/2021 Home Care Visit Elisha Ferguson, OT OT - DISCIPLINE DISCHARGE 10/14/2021 Home Care Visit Tennille Robledo, PT PT - OASIS TRANSFER 10/12/2021 Home Care Visit Tennille Robledo, PT CARE COORDINATION 10/12/2021 Home Care Visit Maureen Shin STATISTICS TUTOR - MISSED VISIT 10/11/2021 Home Care Visit Florencia Pinto, OT - HOME VISIT GEE 10/11/2021 Home Care Visit Tennille Robledo, PT PT - HOME VISIT 10/11/2021 Telephone Miesha Gilbert, Home Ca re (Medication PT Clarification) 10/10/2021 Home Care Visit Florencia Pinto, OT - HOME VISIT GEE 10/10/2021 Home Care Visit Harriett Rodriguez MSW - TELEHEALTH OLERICULTURE TEACHER ASSESSMENT 10/09/2021 Home Care Visit Tennille Robledo, PT PT - HOME VISIT 10/09/2021 Home Care Visit Maureen Shin STATISTICS TUTOR - HOME VISIT 10/09/2021 Travel 10/08/2021 Telemedicine Gregg Carty, Teleh ealth (Follow up) 10/08/2021 Home Care Visit Elisha Ferguson OT OT - INITIAL ASSESSMENT 10/05/2021 Home Care Visit Xochilt Alvares, CARE COORDINATION PT 10/04/2021 Orders Only Scanner <No scans attac hed> 10/03/2021 Home Care Visit Miesha Gilbert, PT - OASIS START OF CARE PT 10/01/2021 Telephone Gregg Carty MD 09/27/2021 Telephone Gregg Carty, Form 09/26/2021 Telephone Gregg Carty, [facility] (Handicap MD parking pass) 09/20/2021 Orders Only Gregg Carty, Lab ( Outside Order) 09/13/2021 Office Visit Salazar Jeffery MD Sleep Follow -up (CPAP) 09/13/2021 Travel 08/01/2021 Office Visit Gregg Carty, Blood Pressure; Urinary MD Problem (freque ncy) 08/01/2021 Travel 07/31/2021 Telephone Gregg Carty, UTI ( Testing question) 07/30/2021 Refill Gregg Carty, Refil l Request (Pravastatin) from Last 3 Months Immunizations Name Administration Dates Next Due AMB INFLUENZA IIV3 (AGE 65+ YRS) PF 11/13/2018 (Flu Clinic Only) AMB Influenza, IIV3 (Age >=3 12/15/2012, 01/24/2009, 008 years)(Flu Clinic Only) AMB Influenza, IIV4 PF (=>6 mos 12/04/2015 Flulaval,Fluzone Fluarix)(Flu Clinic Only) Amb Influenza, Inact (High-dose) (Flu 12/26/2014, 12/20/2013 Clinic Only) Amb Influenza, Inactivated AIIV4 (Age 0911/08/2019 65+ Years) Preserv Free COVID-19 vaccine ([employer] 08/01/2021 30mcg/0.3mL) 12YO+ BRODIE-SUCROSE PF, MDV COVID-19 vaccine ([employer] 12/14/2020, 04/09/2020, 30mcg/0.3mL) PF, MDV Influenza A (H1N1), Inactivated 2009 Influenza A (H1N1), Inactivated (Age 0102/28/2009 >=3 Years) Influenza, IIV3 (Age 6-35 mos) 12/03/2010, 01/24/2009 Influenza, IIV3 (Age >=3 years) 11/04/2011, 12/03/2010, 06/2009, 12/03/2006, 12/18/2005, 12/25/2004, 12/14/2002 Influenza, Inactivated AIIV4 (Age 65+ 12/14/2020 Years) Preserv Free Influenza, Inactivated IIV3 (Age 65+ 10/30/2017, 11/12/2016 Years) Preserv Free Pneumococcal Poly,23-Valent 11/04/2011, 08/07/2006, 06/11/19 07 (Pneumovax) Pneumococcal conj 13-Valent (Prevnar 10/12/2015 13) Td (Age >=7 Years) 05/10/2004 Tdap 08/18/2020, 04/29/2011 Zoster (Shingrix-RZV, recombinant) 03/09/2019, 12/29/2018 Zoster (Zostavax-ZVL, live) 08/07/2006, 06/10/2006 Family History Medical History Relation Name Comments Other Father Mario polio, rheumatic fever Stroke Father Mario 38 y o Cancer-prostate Maternal Grandfather Cancer-breast Mother Scarlett Heart Disease Paternal Aunt Heart Disease Paternal Uncle 1 2 Other Paternal Uncle 2 leukemia Hypertension Sister Sudha Obesity Anesthesia Problem No Family History Blood Disease No Family History Relation Name Status Comments Father Mario (Age 38) Maternal Grandfather Mother Scarlett (Age 85) Paternal Aunt Paternal Uncle 1 Paternal Uncle 2 Sister Sudha Alive Social History Tobacco Use Types Packs/Day Years Used Date Never Smoker Smokeless Tobacco: Never Used Tobacco Cessation: Counseling Given: Yes Alcohol Use Standard Drinks/Week Comments No 0 (1 standard drink = 0.6 oz pure alcoho l) Sex Assigned at Date Recorded Not on file COVID-19 Exposure Response Date Recorded In the last 10 days, have you been in contact with No / Unsu re 10/09/2021 12:15 PM CDT someone who was confirmed or suspected to have Coronavirus/COVID-19? Obstetrics History Last Filed Vital Signs Vital Sign Reading Time Taken Comments Blood Pressure 137/84 10/11/2021 4:30 PM CDT Pulse 74 10/11/2021 4:30 PM CDT Temperature 36.5 ??C (97.7 ??F) 10/11/2021 4:30 PM CDT Respiratory Rate 16 10/11/2021 4:30 PM CDT Oxygen Saturation 96% 10/11/2021 4:30 PM CDT Inhaled Oxygen Concentration - - Weight 106.1 kg (233 lb 12.8 oz) 09/13/2021 10:15 AM CDT Height 177.8 cm (5' 10) 03/13/2021 9:37 AM SUPERVISOR MAJOR APPLIANCE ASSEMBLY Body Mass Index 33.55 03/13/2021 9:37 AM SUPERVISOR MAJOR APPLIANCE ASSEMBLY Plan of Treatment Not on file Goals Goal Patient Goal Associated Recent Patient-Stated? Author Type Problems Progress MAINTAIN LDL Result No Machelle, LESS THAN 100 Component Gregg Rodarte MD Procedures Procedure Name Priority Date/Time Associated Comments Diagnosis SCAN-CT INTERPRETATION 10/19/2021 12:00 AM CDT SCAN-CT INTERPRETATION 10/16/2021 12:00 AM CDT SCAN-LABORATORY REPORT 10/04/2021 12:00 R esults for this AM CDT procedure are i n the results section. SCAN-DIAGNOSTIC REPORT 09/12/2021 12:00 R esults for this AM CDT procedure are i n the results section. UA W/ SEDIMENT EXAM Routine 08/01/2021 2:00 PM Frequency of Re sults for this REFLEXED PER CRITERIA CDT urination proced ure are in the results section. from Last 3 Months Results SCAN-CT INTERPRETATION (10/19/2021 12:00 AM CDT)Only the most recent of2 results within the time period is included. Narrative This result has an attachment that is no t available. Scanner OTHER SCAN-LABORATORY REPORT (10/04/2021 12:00 AM CDT) Narrative This result has an attachment that is no t available. Scanner OTHER SCAN-DIAGNOSTIC REPORT (09/12/2021 12:00 AM CDT) Narrative This result has an attachment that is no t available. Scanner OTHER UA W/ SEDIMENT EXAM REFLEXED PER CRITERIA (08/01/2021 2:00 PM CDT) [facility] Method Time Signature COLOR Yellow Yellow Color 08/01/2021 [facility] 2:21 PM CDT [facility] CLARITY Clear Clear 08/01/2021 [facility] Clarity 2:21 PM CDT [facility] SPECIFIC 1.010 1.010, 08/01/2021 [facility] GRAVITY,URINE 1.015, 2:21 PM CDT [place] 1.020, 1.025 [facility] PH,URINE 7.5 6.0, 7.0, 08/01/2021 [facility] 8.0, 5.5, 2:21 PM CDT [place] 6.5, 7.5, CLINIC 8.5 UROBILINOGEN, Normal Normal EU/dl 08/01/2021 [facility] QUALIT[facility]IVE 2:21 PM CDT [facility] PROTEIN, Negative Negative 08/01/2021 [facility] URINE mg/dL 2:21 PM CDT [facility] GLUCOSE, Negative Negative 08/01/2021 [facility] URINE mg/dL 2:21 PM CDT [facility] KETONES,URINE Negative Negative 08/01/2021 [facility] mg/dL 2:21 PM T [facility] BILIRUBIN,URI Negative Negative 08/01/2021 [facility] 2:21 PM CDT [facility] OCCULT Negative Negative 08/01/2021 [facility] BLOOD,URINE 2:21 PM CDT [facility] NITRITE Negative Negative 08/01/2021 [facility] 2:21 PM CDT [facility] LEUKOCYTE Negative Negative 08/01/2021 [facility] ESTERASE 2:21 PM T [facility] Specimen Anatomical Collection Method Collection Time Receive d Time (Source) Location / / Volume Laterality Urine URINE SPECIMEN / Non-Blood / 08/01/2021 2:00 PM 08/01 2:18 Unknown Unknown CDT PM CDT Gregg Carty MD URINE Performing Organization Address City/State/ZIP Code Phon e Number [facility] [address] [place] [address] from Last 3 Months Insurance Payer Benefit Plan / Subscriber ID Effective Dates Phone Addre ss Type Group MEDICARE PART MEDICARE PART [id number] [place] A [place] HB USE A HB ONLY ent [address] [place] [address] MEDICARE PART MEDICARE PART [id number] 2007-[place] B - HB USE B HB ONLY t [address] [place] [address] MEDICARE PPS HC MEDICARE [id number] 2007-Presen [address] [place] [address] [place] [id number] 2017-Presen [address] [address] [place], [place] [id number] [place]OSS [place] [id number] 2017-[place] [address] [address] [place] [id number] MichaeljfSalty M Personal/Family Self 1940 [address] [facility] (Home) [place] [address] Advance Directives Documents on File Type Date Recorded Patient Manager Core Explanati on Healthcare Directive 08/11/2018 10:47 AM HEALTH C ARE DIRECTIVE, [facility], 03/10/18 Latest Code Status on File Code Status Date Activated Date Inactivated Comments Full Code 06/21/2017 12:01 PM 06/22/2017 2:44 PM Code Status Discussion: Discussed Full Code 11/04/2011 8:01 PM 11/06/2011 10:11 PM Care Teams Linux System Admin Relationship Specialty Start Date End Date Seamus Holley DO Neurology Neurology 12/23/11 Rudy Ohara MD Surgery - Urology 02/19/13 [address] [place] [address] [facility] [address] [place] [address]
--- OUTSIDE RECORDS SUMMARY | 2021-10-30 06:47 | XMS_ITS | Encounter Summary ---
:1940 Author Organization [facility] Address [address] [place] [address] Care Team Providers Name Role Phone No Ref-Primary, Physician Primary Care Provider [phone] Encounter Details Date Type Department Care Team Description 04/09/2020 Immunization [facility] Ryan Marie, Vaccination [address] [address] [place] [address] [phone] Social History Tobacco Use Types Packs/Day Years Used Date Never Assessed Sex Assigned at Date Recorded Not on file documented as of this encounter Plan of Treatment Not on filedocumented as of this encounter Visit Diagnoses Not on filedocumented in this encounter Care Teams Photographic Processor Relationship Specialty Start Date End Date No Ref-Primary, Physician PCP - General 03/16/20 documented as of this encounter
--- OUTSIDE RECORDS SUMMARY | 2021-10-30 06:47 | XMS_ITS | Clinical Summary ---
:1940 Author Organization [facility] Address [address] [place] [address] Care Team Providers Name Role Phone No Ref-Primary, Physician Primary Care Provider [phone] Immunizations Name Administration Dates Next Due COVID-19,PF,Pfizer (12+ Yrs) 04/09/2020, 03/19/2020 Social History Tobacco Use Types Packs/Day Years Used Date Never Assessed Sex Assigned at Date Recorded Not on file Plan of Treatment Health Maintenance Due Date Last Done Comments ADVANCE CARE PLANNING 1940 ANNUAL REVIEW OF HM ORDERS 1940 HEPATITIS C SCREENING 02/29/1960 DTAP/TDAP/TD IMMUNIZATION 1967 (1 - Tdap) LIPID 1977 FALL RISK ASSESSMENT 2007 MEDICARE ANNUAL WELLNESS 2007 VISIT COVID-19 Vaccine (3 - 09/06/2020 04/09/2020, 03/19/2020 Booster for Pfizer series) PHQ-2 (once per calendar 02/17/2021 year) INFLUENZA VACCINE (#1) 2021 11/08/2019, 11/13/2018, 10/30/2017, Additional history exists Pneumococcal Vaccine: 65+ Completed 10/12/2015, 11/04/2011 , Years 08/07/2006, Additional history exists ZOSTER IMMUNIZATION Completed 03/09/2019, 12/29/2018, 08/07/2006, Additional history exists HEPATITIS B IMMUNIZATION Aged Out No long er eligible based on patient 's age to complete this topic IPV IMMUNIZATION Aged Out No longer eligi ble based on patient 's age to complete this topic MENINGITIS IMMUNIZATION Aged Out No longe r eligible based on patient 's age to complete this topic Insurance Payer Benefit Plan / Subscriber ID Effective Dates Phone Addre ss Type Group BCBS BCBS [place] [id number] 2017-Present [address] [address] [place] [address] Care Teams Field Artillery Cannoneer Relationship Specialty Start Date End Date No Ref-Primary, Physician PCP - General 03/16/20
--- OUTSIDE RECORDS SUMMARY | 2021-10-30 06:47 | XMS_ITS ---
:1940 Author Care Team Providers Name Role Phone Cindi Patrick Primary Care Provider Unavailable Allergies None recorded. Medications Name Status Start Date Stop Date ? ? cephalexin 500 mg capsule Active ? Not av ailable TAKE 1 CAPSULE (500 MG) BY MOUTH 2 TIMES DAILY FOR 7 DAYS. citalopram 20 mg tablet Active ? Not avai lable donepezil 10 mg tablet Active ? Not avail able donepezil 5 mg tablet Active ? Not availa ble hydrochlorothiazide 12.5 mg tablet Active ? Not available levothyroxine 100 mcg tablet Active ? Not available losartan 50 mg tablet Active ? Not availa ble metoprolol succinate ER 100 mg tablet,extended release 24 Active ? Not available hr pravastatin 20 mg tablet Active ? Not melisa ilable pravastatin 40 mg tablet Active ? Not melisa ilable triamcinolone acetonide 0.1 % topical cream Active ? Not available Problems None recorded. Procedures None recorded. Results Lab Results Date Name Specimen Result Interpretation Description Value Range Status Address ? 10/20/2020 SARS CoV 2 RNA, Nose (nasal ? Result negative ? ? [facility] QL, BINU+probe, passage) Urgent Care Nose [place]: [address] Past Encounters 10/20/2020 Exposure to SARS-CoV-2 Cindi Patrick PA-C: [address] [facility], [address] [address], Ph. [phone] Social History None recorded. Vaccine List None recorded. Plan of Care Reminders Provider Appointments None recorded. ? ? Lab None recorded. ? ? Referral None recorded. ? ? Procedures None recorded. ? ? Surgeries None recorded. ? ? Imaging None recorded. ? ? Vitals Blood Pressure 165/81 mm[Hg]
== END 2021-10-18 23:50 | disposition home or self-care (01) ==
LOC: AMB 10-30 06:45
PROVIDERS: PCP Family Medicine; Visit Provider Family Medicine
DX: R41.82 Altered mental status, unspecified (principal)
CPT/HCPCS: A0425; A0433

== ENCOUNTER 2021-10-19 00:20 | Emergency (ER) | payer MEDICARE, BC, SELFPAY ==
[2021-10-19] VITALS (10 sets, daily range): BP systolic 60–138; BP diastolic 41–88; PULSE 102–139; RESP 12; TEMP 36.1; O2SAT 83–96
[2021-10-19 00:38] LABS: Basophils Percent Auto 0.4 % (0.0-3.0); Eosinophils Percent Auto 2.8 % (0.0-7.0); Hematocrit 53.8 % (37.0-53.0); Hemoglobin* 17.2 gm/dL (13.5-17.5); Immature Granulocytes Abs Auto 0.31 K/uL (0.00-0.30); Lymphocytes Percent Auto 31.7 % (20-44); Mean Corpuscular HGB Conc 32 gm/dL (32-36); Mean Corpuscular Hemoglobin 31 pg (26-34); Mean Corpuscular Volume 98 fL (80-100); Monocytes Percent Auto 6.5 % (0.0-11.0); Neutrophils Percent Auto 56.7 % (42.0-72.0); Platelet Count* 338 K/uL (140-440); RDW Coefficient of Variation % 12.3 % (11.5-15.5); Red Blood Count 5.47 m/uL (4.30-5.90); White Blood Count* 16.28 K/uL (4.50-11.00)
[2021-10-19 00:39] LABS: Slide Review Reflex No
--- NOTE | 2021-10-19 00:45 | CRLHL7_ITS ---
For Patients: As a result of the Century Cures Act, medical imaging exams and procedure reports are released immediately into your electronic medical record. You may view this report before your referring provider. If you have questions, please contact your health care provider. Indication: Intubation Technique: Chest 1 view Comparison: None Findings/Impression: The left lateral aspect of the chest is excluded from the study on the basis of patient positioning. An endotracheal tube tip is within the right mainstem bronchus and should be retracted approximately 6 cm. The visualized lungs are clear. No pneumothorax. No right-sided effusion. Normal cardiac size. No acute osseous abnormality. Findings discussed with Dr. Ndiaye at 1:07 a.m. on October 19, 2021. Dictated by Naomi Bonds MD @ 10/19/2021 1:09:15 AM (Electronically Signed)
--- NOTE | 2021-10-19 00:45 | CRLHL7_ITS ---
For Patients: As a result of the Century Cures Act, medical imaging exams and procedure reports are released immediately into your electronic medical record. You may view this report before your referring provider. If you have questions, please contact your health care provider. INDICATION: Unresponsive TECHNIQUE: Head CT without contrast. COMPARISON: October 16, 2021 FINDINGS: CSF spaces: Within normal limits for age. Brain parenchyma: There are nonspecific low attenuation white matter changes consistent with chronic microvascular disease. 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 No sign of mass, hemorrhage, or midline shift. Skull base and calvarium: The visualized paranasal sinuses and mastoid air cells demonstrate no acute or significant findings. The visualized orbits are grossly unremarkable. No skull fractures. There is intracranial atherosclerosis. IMPRESSION: 1. No acute findings. 2. Nonspecific white matter disease, typical of chronic microvascular disease. 3. 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 Please note that all CT scans at this facility use dose modulation, iterative reconstruction, and/or weight-based dosing when appropriate to reduce radiation dose to as low as reasonably achievable. Dictated by Naomi Bonds MD @ 10/19/2021 1:05:29 AM (Electronically Signed)
[2021-10-19 00:47] LABS: Chloride* 109 mmol/L (96-114); Potassium* 4.3 mmol/L (3.6-5.1); Sodium* 150 mmol/L (135-149)
[2021-10-19 00:50] LABS: Carbon Dioxide* 15 mmol/L (20-32); Creatinine* 1.9 mg/dL (0.5-1.5); Estimated Glomerular Filt Rate 35 ml/min
[2021-10-19 00:51] LABS: Blood Urea Nitrogen* 47 mg/dL (7-30); Calcium* 10.1 mg/dL (8.4-10.6); Glucose* 185 mg/dL (60-115)
[2021-10-19] MEDS: MIDAZOLAM HCL 1 MG/ML inj 5 MG IVP (00:55)
[2021-10-19 01:03] LABS: Troponin I* 0.03 ng/mL (0.01-0.04)
[2021-10-19 01:12] LABS: SARS Antigen* negative (Negative)
--- NOTE | 2021-10-19 01:20 | ED.NURSE ---
MD Ndiaye verbal to stop pulse oximetry and bp, pt comfort cares per MD and pt family.
--- NOTE | 2021-10-19 01:22 | ED.NURSE ---
vent changed from EMS vent to ED vent, no setting changes. vt 660, peep10, fio2 100%. rate 12.
--- NOTE | 2021-10-19 01:31 | ED_ITS ---
HPI - Altered Mental Status General Date Seen: 10/19/21 Chief Complaint: Altered Mental Status Stated Complaint: Vomitting, unresponsive Time Seen by Provider: 10/19/21 00:30 Source: family, EMS and old records reviewed Mode of arrival: EMS Limitations: altered mental status History of Present Illness HPI narrative: Salty is a 81-year-old gentleman with recent and increasing failure to thrive dementia, hypertension who is brought to the emergency room by EMS from [facility] for evaluation regarding unresponsiveness. Salty was found in his bed unresponsive at approximately 2330 hours. Per nursing report he had vomited. Upon EMS arrival, they did not note vomit but patient was unresponsive with a GCS of 3 with sonorous respirations. They did check cold status and it was found that he was full code and they intubated him with RSI technique. He was then given further sedation with Versed and rocuronium. They note tachycardia and normal blood pressure. There were no signs of trauma. Patient presents intubated. Patient was last seen normal at approximately 1015 or 10 30 by his son. MD complaint: altered mental status Timing confirmed by: family member Severity: severe Consistency of symptoms: constant Treatments prior to arrival: glucose (126), IV fluid and intubation Related Data Home Medications Medication Instructions Recorded Confirmed citalopram 20 mg tablet 20 mg PO DAILY 10/04/21 10/12/21 levothyroxine 100 mcg tablet 100 mcg PO DAILY 10/04/21 10/12/21 pravastatin 20 mg tablet 20 mg PO HS 10/04/21 10/12/21 Previous Rx's Medication Instructions Recorded acetaminophen 325 mg tablet 650 mg PO Q6H PRN 30 days #50 tabs 10/17/21 amlodipine 5 mg tablet 5 mg PO DAILY 30 days #30 tabs 10/17/21 carboxymethylcellulose sodium 0.5 1 drp ophthalmic (eye) BID PRN 10/17/21 % eye drops in a dropperette Ocular lubricant 30 days #50 (Refresh Plus) packets losartan 50 mg tablet 100 mg PO DAILY #30 tabs 10/17/21 metoprolol succinate 50 mg 150 mg PO DAILY 30 days #90 tabs 10/17/21 tablet,extended release 24 hr potassium chloride 10 mEq 20 meq PO BIDWM 30 days #60 caps 10/17/21 capsule,extended release quetiapine 25 mg tablet 12.5 mg PO HS 30 days #15 tabs 10/17/21 spironolactone 25 mg tablet 12.5 mg PO DAILY 30 days #15 tabs 10/17/21 Allergies Allergy/AdvReac Type Severity Reaction Status Date / Time No Known Drug Allergies Allergy Verified 10/04/21 20:27 Review of Systems Status of ROS: Reports: unobtainable due to mental status Narrative: Recently hospitalized as could no longer care for patient. Has been having difficulty with word finding and putting sentences together lately. Has experienced a rapid decline in being able to care for self. Const: Denies: fever [facility] Medical History History of prostate cancer Hypertension Hypothyroidism Moderate dementia Social History Highest level of school completed/degree received: Master's degree Smoking Status: Never smoker How often do you have a drink containing alcohol: never How often do you have six or more drinks on one occasion: Never AUDIT-C Alcohol total score: 0 Non-prescribed substance use: denies use Caffeine: Yes (occasional) service: No Exam Const: Vital Signs, click to edit/add: Vital Signs - 24 hr 10/19/21 00:21 10/19/21 00:30 10/19/21 00:40 Temperature 97.0 F L 97.0 F L Pulse Rate [Right Pulse Oximeter] 136 H 136 H 124 H Respiratory Rate 12 12 12 Blood Pressure [Ri ght Upper Arm] 136/86 135/70 138/88 Pulse Oximetry 96 96 95 Oxygen Delivery Me thod Intubated Intubated Intubated Oxygen Flow Rate Fraction of Inspir ed Oxygen 100 100 100 10/19/21 01:10 10/19/21 01:15 10/19/21 01:20 Temperature Pulse Rate [Right Pulse Oximeter] 102 H Respiratory Rate 12 Blood Pressure [Ri ght Upper Arm] 138/88 66/44 L 60/41 L Pulse Oximetry 83 L Oxygen Delivery Me thod Intubated Intubated Oxygen Flow Rate Fraction of Inspir ed Oxygen 100 10/19/21 00:35 10/19/21 00:50 10/19/21 00:55 Temperature Pulse Rate [Right Pulse Oximeter] 123 H 139 H 110 H Respiratory Rate 12 12 12 Blood Pressure [Ri ght Upper Arm] 138/88 138/88 138/88 Pulse Oximetry 92 92 92 Oxygen Delivery Me thod Intubated Intubated Intubated Oxygen Flow Rate Fraction of Inspir ed Oxygen 100 100 100 10/19/21 01:00 10/19/21 00:30 Temperature Pulse Rate [Right Pulse Oximeter] 123 H Respiratory Rate 12 Blood Pressure [Ri ght Upper Arm] 138/88 Pulse Oximetry 86 L 92 Oxygen Delivery Me thod Intubated Intubated Oxygen Flow Rate 15 Fraction of Inspir ed Oxygen 100 100 Documenting provider has reviewed patient's vital signs: yes Exam limitations: altered mental status (Intubated) Nutritional appearance: obese HENMT: Common normals: head/scalp atraumatic, external ears normal and external nose normal Head and scalp: atraumatic Nose: external nose normal External ear: external ears normal Eye: Other: No pupillary response. Pupil on the right approximately 3 mm. Left eye with rather opaque appearing cornea. Neck & C-Spine: Common normals: no lymphadenopathy and supple Chest: Common normals: palpation of chest normal Resp: Other: Breath sounds heard on the right but not on the left. Cardio: Common normals: regular rhythm Rate: tachycardic Rhythm: regular rhythm GI: Common normals: soft to palpation Inspection: no abdominal distension Palpation: soft Extremity: Common normals: normal to inspection Neuro: [place] Coma Scale: document GCS findings [place] coma scale eye opening: None (1) [place] coma scale verbal response: None (1) [place] coma scale motor response: None (1) [place] coma scale total score: 3 Psych: Other: At this time paralytic is no longer active. Patient is not moving. No corneal response. Does have some spontaneous inspiration. Skin: Common normals: no rashes or lesions noted General skin exam: no rashes or lesions noted Course Course Hospital Course: Patient is noted to have been found unresponsive with vomiting per nursing staff. GCS of 3. Patient underwent RSI and was transferred to [facility]. Initial plan had been to transfer to [facility] as patient was deemed full code according to his paperwork. While awaiting this we did have patient undergo CT, obtain an EKG and blood work. It was noted that his CT showed evidence of an old stroke but no acute stroke. An EKG showed sinus tachycardia with evidence of T-wave inversion in lead [address] depression V3 4 5 but a negative troponin. At that time patient's family arrived. We did talk about etiology of his unresponsiveness. They had thought that patient was DNR. We talked about further interventions including CPR chest compressions should his heart stop, use of a lytic in the event that this was a stroke, and transfer. At this time they are electing to stay here for comfort cares. Daughter is and route. The plan is to extubate once daughter arrives and patient will remain on comfort care. Family does understand that once extubation occurs will likely follow. Reevaluation(s) Reevaluation #1: Entire family has gathered. All questions answered. Patient is extubated and then suction. He continues to have respirations with some intercostal retractions. His heart rate is in the 80s at this time. Mildly agitated. Ativan 0.5 mg IV is given Reevaluation #2: Patient continued to be surrounded by family. Heart rate became somewhat irregular with noted PVCs atrial fibrillation. And some tachycardia. Patient had gradual decrease in respirations and heart rate and at approximately 1530 hours. He was surrounded by loved ones. Vital Signs Vital signs: Initial Vital Signs Temperature 97.0 F L 10/19/21 00:21 Temperature Source Temporal Artery Scan 10/19/21 00:21 Pulse Rate 136 H 10/19/21 00:21 Pulse Rhythm 10/19/21 00:21 Pulse Strength 0+ Absent 10/19/21 00:21 Respiratory Rate 12 10/19/21 00:21 Blood Pressure 136/86 10/19/21 00:21 Blood Pressure Mean 102 10/19/21 00:21 Blood Pressure Position Supine 10/19/21 00:21 Pulse Oximetry 96 10/19/21 00:21 Oxygen Delivery Method 10/19/21 00:21 Fraction of Inspired Oxygen 100 10/19/21 00:21 Vital Signs Temperature 97.0 F L 10/19/21 00:21 Pulse Rate 136 H 10/19/21 00:21 Respiratory Rate 12 10/19/21 00:21 Blood Pressure 136/86 10/19/21 00:21 Pulse Oximetry 96 10/19/21 00:21 Oxygen Delivery Method 10/19/21 00:21 Fraction of Inspired Oxygen 100 10/19/21 00:21 Temperature 97.0 F L 10/19/21 00:30 Pulse Rate 102 H 10/19/21 01:10 Respiratory Rate 12 10/19/21 01:10 Blood Pressure 60/41 L 10/19/21 01:20 Pulse Oximetry 83 L 10/19/21 01:10 Oxygen Delivery Method 10/19/21 01:15 Oxygen Flow Rate 15 10/19/21 00:30 Fraction of Inspired Oxygen 100 10/19/21 01:10 MDM - Altered Mental Status MDM Narrative Medical decision making narrative: 1. Altered mentation-I believe this most likely represents a large stroke. Differential also includes seizure with postictal phase, acute coronary event, hypoglycemia. Blood sugar is normal, troponin is negative although EKG does shows some nonspecific T-wave abnormalities and head CT does not show any sign of blood. I spoke to family about transfer for further evaluation with specialty care. Also spoke about use of lytics in the event of a stroke as we were able to establish time of last known well. At this time they do describe markedly decreasing failure to thrive with their loved 1 and elect not to pursue any further treatment. They are accepting of comfort cares. 2. Disposition- patient at 0330 hours after extubation. Medical Records Attestation: I reviewed the patient's medical records. Lab Data Attestation: I reviewed the patient's lab results. Labs: Lab Results 10/19/21 10/19/21 10/19/21 Range/Units 00:20 00:20 00:40 WBC 16.28 H (4.50-11.00) K/uL RBC 5.47 (4.30-5.90) m/uL Hgb 17.2 (13.5-17.5) gm/dL Hct 53.8 H (37.0-53.0) % MCV 98 (80-100) fL MCH 31 (26-34) pg MCHC 32 (32-36) gm/dL RDW Coeff of Zena 12.3 (11.5-15.5) % Plt Count 338 (140-440) K/uL Neut % (Auto) 56.7 (42.0-72.0) % Lymph % (Auto) 31.7 (20-44) % [place] % (Auto) 6.5 (0.0-11.0) % Eos % (Auto) 2.8 (0.0-7.0) % Baso % (Auto) 0.4 (0.0-3.0) % Neut # (Auto) 9.20 H (1.7-7.0) K/uL Lymph # (Auto) 5.20 H (0.90-2.90) K/uL [place] # (Auto) 1.10 H (0.00-0.90) K/UL Eos # (Auto) 0.50 (0.00-0.50) K/uL Baso # (Auto) 0.10 (0.00-0.30) K/uL Abs Immat Gran (auto) 0.31 H (0.00-0.30) K/uL Sodium 150 H (135-149) mmol/L Potassium 4.3 (3.6-5.1) mmol/L Chloride 109 (96-114) mmol/L Carbon Dioxide 15 L (20-32) mmol/L BUN 47 H (7-30) mg/dL Creatinine 1.9 H (0.5-1.5) mg/dL Estimated GFR 35 ml/min Glucose 185 H (60-115) mg/dL Calcium 10.1 (8.4-10.6) mg/dL Troponin I 0.03 (0.01-0.04) ng/mL SARS-CoV-2 Ag (Rapid) negative (Negative) Imaging Data Chest x-ray: Attestation: I have reviewed the pertinent imaging results. My impression: No evidence of pneumonia however ETT is in the right mainstem. Radiologist's impression: Same CT scan - head: Attestation: I have reviewed the pertinent imaging results. My impression: Evidence of old stroke write a septal lobe Radiologist's impression: Brain parenchyma: There are nonspecific low attenuation white matter changes consistent with chronic microvascular disease. 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 No sign of mass, hemorrhage, or midline shift. Skull base and calvarium: The visualized paranasal sinuses and mastoid air cells demonstrate no acute or significant findings. The visualized orbits are grossly unremarkable. No skull fractures. There is intracranial atherosclerosis. IMPRESSION: 1. No acute findings. 2. Nonspecific white matter disease, typical of chronic microvascular disease. 3. 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 ECG Data Attestation: I personally reviewed and interpreted this ECG as follows: ECG interpretation date: 10/19/21 Interpretation: Sinus tachycardia at a rate of 126. T-wave inversion in 1 and aVL. Critical Care Time Critical Care Time Critical Care Time: Yes Attestation: The patient required my highest level preparedness to intervene emergently and I personally spent this critical care time directly and personally managing the patient. This critical care time included: Obtaining a history; Examining the patient; Pulse oximetry; Ordering and reviewing of studies; Arranging urgent treatment with development of a management plan; Evaluation of patients response to treatment; Frequent reassessment discussions with other providers. This critical care time was performed to assess and manage the high probability of imminent life-threatening deterioration that could result in multiorgan failure. It was exclusive of separate billable procedures and treating other patients and teaching time. Total Critical Care Time in Minutes: 30 Discharge Plan Discharge Clinical Impression: Altered mental status, Dementia due to Alzheimer's disease Patient Disposition: Probable Cause of Probable Cause of : Stroke of unknown etiology
[2021-10-19] MEDS: LORazepam 2 MG/ML inj 0.5 MG IVP (03:10)
--- NOTE | 2021-10-19 03:29 | PC.NURSE ---
security monitor shows asystole, apical heart tones absent, no respirations. MD Ndiaye aware [id number].
--- NOTE | 2021-10-19 04:30 | ED.NURSE ---
home pepe at bedside
--- NOTE | 2021-10-19 04:36 | ED.NURSE ---
Eye donation denied per [facility] r/t dementia.
--- NOTE | 2021-10-19 04:45 | ED.NURSE ---
pt transported by [facility]
--- NOTE | 2021-10-19 04:49 | ED.NURSE ---
pt extubated by MD Ndiaye.
== END 2021-10-19 04:49 | disposition expired ==
PROVIDERS: Emergency Provider Family Medicine; PCP Family Medicine
DX: R41.82 Altered mental status, unspecified (principal); G30.1 Alzheimer's disease with late onset; F02.80 Dementia in other diseases classified elsewhere, unspecified severity, without behavioral disturbance, psychotic disturbance, mood disturbance, and anxiety
CPT/HCPCS: 36415; 70450; 71045; 80048; 84484; 85025; 87426; 93005; 96374; 96375; 99285; 99291; J2060; J2250